=== PATIENT | male | born 1955 | race Caucasian/White ===

== ENCOUNTER → 2016-05-08 | Outpatient (CLI) | payer BC ==
[2013-07-09 10:02] VITALS: BP 145/83
[~2016-05-08] MED LIST: ASPI325T4 PO; CLOP75TA PO; HYDR25TA9 PO; SIMV40TA3 PO; [UNRECOGNIZED DRUG - CODE] PO
--- NOTE | 2016-05-08 18:22 | CARD ---
APPROVED REPORT EXAM: Two-dimensional and M-mode echocardiogram with Doppler and color Doppler. Other Information Quality : GoodHR: 58bpm Rhythm : Bradycardia INDICATION Pre-Op Cardiac Disease: CAD 2D DIMENSIONS RVDd3.7 (2.9-3.5cm)Left Atrium(2D)3.8 (1.6-4.0cm) IVSd1.0 (0.7-1.1cm)Aortic Root(2D)3.0 (2.0-3.7cm) LVDd4.6 (3.9-5.9cm)LVOT Diameter2.3 (1.8-2.4cm) PWd0.9 (0.7-1.1cm)LVDs3.0 (2.5-4.0cm) FS (%) 33.9 %SV60.7 ml LVEF(%)60.0 (>50%) Aortic Valve AoV Peak Connor.130.8cm/sAoV VTI27.6cm AO Peak GR.6.8mmHgLVOT Peak Connor.102.5cm/s LVOT VTI 22.65cmAO Mean GR.3mmHg TOMMY (VMAX)3.29xs9HMC (VTI)3.26cm2 Mitral Valve MV E Jiwozyeo53.1cm/sMV DECEL [id number] MV A Clbraekh93.5cm/sMV E Mean Gr.2mmHg MV DXT89caG/A Ratio2.1 MV A [id number] (PHT)3.69cm2 TDI E/Lateral E'7.4E/Medial E'9.7 Pulmonary Valve PV Peak Amoiowev06.7cm/sPV Peak Grad.3mmHg RVOT VTI14.9cm Tricuspid Valve TR P. Iqlhoimh332ux/sRAP [id number] TR Peak Gr.49naDkZZGB07rzZt Pulmonary Vein S1 Ocsuqgzc85.4cm/sD2 Fiwfntkq32.6cm/s PVa [id number] LEFT VENTRICLE The left ventricle is normal size. There is normal left ventricular wall thickness. Left ventricle sy stolic function is normal. The Ejection Fraction is 60%. There is normal LV segmental wall motion. Th e left ventricular diastolic function and filling is normal for age. There is no ventricular septal d efect visualized. RIGHT VENTRICLE The right ventricle is mildly dilated. There is normal right ventricular wall thickness. The right ve ntricular systolic function is normal. ATRIA The left atrium size is normal. The right atrium is mildly dilated. The interatrial septum is intact with no evidence for an atrial septal defect or patent foramen ovale as noted on 2-D or Doppler imagi ng. AORTIC VALVE The aortic valve is mildly thickened but opens well. The aortic valve is trileaflet. Doppler and [place] r Flow revealed no significant aortic regurgitation. There is no significant aortic valvular stenosis . MITRAL VALVE The mitral valve leaflets are thickened. There is no evidence of mitral valve prolapse. There is no m itral valve stenosis. Doppler and Color Flow revealed mild mitral regurgitation. TRICUSPID VALVE Doppler and Color Flow revealed mild tricuspid regurgitation. There is mild pulmonary hypertension. T he PA pressure was estimated at 43 mmHg. PULMONIC VALVE Doppler and Color Flow revealed mild pulmonic valvular regurgitation. GREAT VESSELS The aortic root is normal in size. The ascending aorta is normal in size. The pulmonary artery is nor mal. Normal pulmonary venous flow (Doppler). The IVC is normal in size and collapses >50% with inspir ation. PERICARDIAL EFFUSION There is no evidence of significant pericardial effusion. Critical Notification Critical Value: No <Conclusion> Left ventricle systolic function is normal. The Ejection Fraction is 60%. The right ventricle is mildly dilated. The left atrium size is normal. The right atrium is mildly dilated. The aortic valve is mildly thickened but opens well. The aortic valve is trileaflet. Doppler and Color Flow revealed mild mitral regurgitation. Doppler and Color Flow revealed mild tricuspid regurgitation. There is mild pulmonary hypertension. The PA pressure was estimated at 43 mmHg. Doppler and Color Flow revealed mild pulmonic valvular regurgitation. There is no evidence of significant pericardial effusion.
== END | disposition home or self-care (01) ==
LOC: ECHO 09:34
PROVIDERS: ATTEND Internal Medicine Cardiovascular Disease
DX: Z01.818 Encounter for other preprocedural examination (principal); I25.10 Atherosclerotic heart disease of native coronary artery without angina pectoris; I34.0 Nonrheumatic mitral (valve) insufficiency; I27.2 Other secondary pulmonary hypertension; I72.9 Aneurysm of unspecified site; I07.1 Rheumatic tricuspid insufficiency
CPT/HCPCS: 93306

== ENCOUNTER 2017-02-04 06:18 | Inpatient (IN) | payer BC ==
[~2017-02-04] VITALS: Ht 172.7 cm; Wt 95.0 kg
[~2017-02-04 06:18] MED LIST changes: -ASPI325T4 PO; +ASPI325T8 PO
[2017-02-04] MEDS ORDERED: NITROGLYCERIN SUBLINGUAL 0.4 MG BOTTLE OF 25. SL PRN (06:30)
[2017-02-04] MEDS ORDERED: fentaNYL PF VIAL 100 MCG/2 ML VIAL IV PRN ×2 (06:30→07:30)
[2017-02-04 06:43] LABS: BASO # 0.1 x10^3/uL (0.0-0.2); BASO % 1 % (0-3); EOS % 4 % (0-3); HEMATOCRIT 48.5 % (39.0-53.0); HEMOGLOBIN 16.6 g/dL (13.0-17.5); LYMPH # 2.2 x10^3/uL (1.0-4.8); LYMPH % 22 % (24-48); MEAN CORPUSCULAR HEMOGLOBIN 32 pg (25-35); MEAN CORPUSCULAR HGB CONC 34 g/dL (31-37); MEAN CORPUSCULAR VOLUME 94 fL (79-100); MONO % 11 % (0-9); NEUT % 62 % (31-73); PLATELET COUNT 215 x10^3/uL (140-400); RED BLOOD COUNT 5.13 x10^6/uL (4.30-5.70); RED CELL DISTRIBUTION WIDTH 13.2 % (11.5-14.5)
[2017-02-04 06:55] LABS: CALCIUM 8.8 mg/dL (8.5-10.1); CREATININE 1.1 mg/dL (0.7-1.3); GFR 67.8; POTASSIUM 3.8 mmol/L (3.5-5.1)
[2017-02-04 07:00] VITALS: BP_SYST 161; BP_SYST 169; BP_DIAS 82; BP_DIAS 88
[2017-02-04] MEDS ORDERED: ASPIRIN CHEWABLE 81 MG TABLET. PO ONE (07:00)
[2017-02-04] MEDS ORDERED: ONDANSETRON PF 4 MG/2 ML VIAL. IV ONE (07:00)
[2017-02-04] MEDS ORDERED: IV NORMAL SALINE 1000ML BAG 1,000 ML IV SCH ×2 (07:00→19:00)
[2017-02-04 07:01] LABS: ALBUMIN 3.7 g/dL (3.4-5.0); ALBUMIN/GLOBULIN RATIO 0.9 (1.0-1.7); MAGNESIUM 2.2 mg/dL (1.8-2.4); TOTAL BILIRUBIN 0.4 mg/dL (0.2-1.0); TOTAL PROTEIN 7.6 g/dL (6.4-8.2)
--- NOTE | 2017-02-04 07:08 | RAD ---
Portable chest, 02/04/2017: History: Chest pain Comparison is made to a study from 08/07/2011. The heart size and pulmonary vascularity are normal. The lungs are clear. There is no evidence of pleural fluid. IMPRESSION: No acute cardiopulmonary abnormality is detected.
[2017-02-04 07:13] LABS: CKMB MASS 0.9 ng/mL (0.0-3.6)
--- NOTE | 2017-02-04 07:15 | PHYS DOC ---
Past Medical History Past Medical History: CAD, Hypertension Past Surgical History: Angioplasty Alcohol Use: Occasionally Drug Use: None Adult General Chief Complaint Chief Complaint: CHEST PAIN HPI HPI Patient is a 62 year old male who presents with complaint of chest pain. Patient states that he awoke with chest pain at approximately 0345 this morning. Patient described the pain as "a severe sore throat." Patient states that the pain radiated into both sides of his neck as well as in both upper extremities. Patient states that this lasted a little over an hour and then resolved on its own. Patient denies any pain currently. Patient did not take any medications for his symptoms. The patient has history of coronary artery disease and has had coronary stents placed in the past. Patient follows with Dr. Hunter of cardiology. Patient states that he has had associated nausea and shortness of breath with his symptoms. Patient denies diaphoresis. Patient currently on aspirin and Plavix. Patient denies any known exacerbating or alleviating factors. Review of Systems Review of Systems Constitutional: Denies fever or chills [] Eyes: Denies change in visual acuity, redness, or eye pain [] HENT: Denies nasal congestion or sore throat [] Respiratory: Shortness of breath, denies cough[] Cardiovascular: Chest pain[] GI: Nausea, denies abdominal pain, vomiting, or diarrhea[] : Denies dysuria or hematuria [] Musculoskeletal: Denies back pain or joint pain [] Integument: Denies rash or skin lesions [] Neurologic: Denies headache, focal weakness or sensory changes [] All other systems were reviewed and found to be within normal limits, except as documented in this note. Current Medications Current Medications Current Medications Medications (Trade) Dose Ordered Sig/Rc Start Time Stop Time Status Last Admin Dose Admin Aspirin (Children'S Aspirin) 324 mg 1X ONCE 02/04/17 07:00 02/04/17 07:01 DC 02/04/17 06:56 324 MG Fentanyl Citrate (Fentanyl 2ml Vial) 50 mcg PRN Q15MIN PRN 02/04/17 06:30 02/05/17 06:29 Nitroglycerin (Nitrostat) 0.4 mg PRN Q5MIN PRN 02/04/17 06:30 02/05/17 06:29 Ondansetron HCl (Zofran) 4 mg 1X ONCE 02/04/17 07:00 02/04/17 07:01 DC Sodium Chloride 1,000 ml @ 125 mls/hr Q8H 02/04/17 07:00 02/04/17 14:59 02/04/17 06:57 125 MLS/HR Allergies Allergies Allergies Coded Allergies Type Severity Reaction Last Updated Verified No Known Drug Allergies 07/09/13 No Physical Exam Physical Exam Constitutional: Well developed, well nourished, no acute distress, non-toxic appearance. [] HENT: Normocephalic, atraumatic, bilateral external ears normal, oropharynx moist, no oral exudates, nose normal. [] Eyes: PERRLA, EOMI, conjunctiva normal, no discharge. [] Neck: Normal range of motion, no tenderness, supple, no stridor. [] Cardiovascular:Heart rate regular rhythm, no murmur [] Lungs & Thorax: Bilateral breath sounds clear to auscultation [] Abdomen: Bowel sounds normal, soft, no tenderness, no masses, no pulsatile masses. [] Skin: Warm, dry, no erythema, no rash. [] Back: No tenderness, no CVA tenderness. [] Extremities: No tenderness, no cyanosis, no clubbing, ROM intact, no edema. [] Neurologic: Alert and oriented X 3, normal motor function, normal sensory function, no focal deficits noted. [] Current Patient Data Vital Signs Vital Signs Date Time Temp Pulse Resp B/P (MAP) Pulse Ox O2 Delivery O2 Flow Rate FiO2 02/04/17 06:26 98.3 64 18 162/81 (108) 98 Room Air 98.3 Lab Values Laboratory Tests Test 02/04/17 06:30 White Blood Count 10.0 x10^3/uL (4.0-11.0) Red Blood Count 5.13 x10^6/uL (4.30-5.70) Hemoglobin 16.6 g/dL (13.0-17.5) Hematocrit 48.5 % (39.0-53.0) Mean Corpuscular Volume 94 fL (79-100) Mean Corpuscular Hemoglobin 32 pg (25-35) Mean Corpuscular Hemoglobin Concent 34 g/dL (31-37) Red Cell Distribution Width 13.2 % (11.5-14.5) Platelet Count 215 x10^3/uL (140-400) Neutrophils (%) (Auto) 62 % (31-73) Lymphocytes (%) (Auto) 22 % (24-48) L Monocytes (%) (Auto) 11 % (0-9) H Eosinophils (%) (Auto) 4 % (0-3) H Basophils (%) (Auto) 1 % (0-3) Neutrophils # (Auto) 6.2 x10^3uL (1.8-7.7) Lymphocytes # (Auto) 2.2 x10^3/uL (1.0-4.8) Monocytes # (Auto) 1.1 x10^3/uL (0.0-1.1) Eosinophils # (Auto) 0.4 x10^3/uL (0.0-0.7) Basophils # (Auto) 0.1 x10^3/uL (0.0-0.2) Sodium Level 137 mmol/L (136-145) Potassium Level 3.8 mmol/L (3.5-5.1) Chloride Level 101 mmol/L (98-107) Carbon Dioxide Level 25 mmol/L (21-32) Anion Gap 11 (6-14) Blood Urea Nitrogen 12 mg/dL (8-26) Creatinine 1.1 mg/dL (0.7-1.3) Estimated GFR (Cockcroft-Gault) 67.8 BUN/Creatinine Ratio 11 (6-20) Glucose Level 165 mg/dL (70-99) H Calcium Level 8.8 mg/dL (8.5-10.1) Magnesium Level 2.2 mg/dL (1.8-2.4) Total Bilirubin 0.4 mg/dL (0.2-1.0) Aspartate Amino Transferase (AST) 26 U/L (15-37) Alanine Aminotransferase (ALT) 34 U/L (16-63) Alkaline Phosphatase 84 U/L (46-116) Troponin I Quantitative 0.265 ng/mL (0.000-0.055) Total Protein 7.6 g/dL (6.4-8.2) Albumin 3.7 g/dL (3.4-5.0) Albumin/Globulin Ratio 0.9 (1.0-1.7) L Laboratory Tests 02/04/17 06:30 Laboratory Tests 02/04/17 06:30 EKG EKG Interpreted by me: Heart rate 64, sinus rhythm, normal intervals, normal axis, no acute ST/T-wave abnormalities present[] Radiology/Procedures Radiology/Procedures [facility] [address] [place] [address] IMAGING REPORT Signed PATIENT: PILO CRESPO ACCOUNT: [id number] : 1955 LOCATION: ER AGE: 62 SEX: M EXAM STATUS: PRE ER ORD. PHYSICIAN: BINDU ENCARNACION MD REASON: chest pain PROCEDURE: PORTABLE CHEST 1V Portable chest, 02/04/2017: History: Chest pain Comparison is made to a study from 08/07/2011. The heart size and pulmonary vascularity are normal. The lungs are clear. There is no evidence of pleural fluid. IMPRESSION: No acute cardiopulmonary abnormality is detected. DICTATED and SIGNED BY: KIERAN JOHN MD DATE: 02/04/17 0704 CC: BINDU ENCARNACION MD; DANIELLE BRAND ~ [] Course & Med Decision Making Course & Med Decision Making Pertinent Labs and Imaging studies reviewed. (See chart for details) The patient was given aspirin in the emergency department. The patient was not given nitroglycerin, fentanyl, and Zofran as he states he was not having pain and refused these medications. Patient's blood work showed an elevated troponin level of 0.265. Patient started on IV heparin per cardiovascular protocol. Patient will be admitted to the hospital for further evaluation and treatment of acute coronary syndrome. I spoke with Dr. Brown who accepted care of patient in hospital. I also spoke with Dr. Hunter of cardiology who agreed with initial treatment and will follow with patient in hospital. Dragon Disclaimer Dragon Disclaimer This electronic medical record was generated, in whole or in part, using a voice recognition dictation system. Departure Departure Impression: Primary Impression: Acute coronary syndrome Disposition: ADMITTED INPATIENT Admitting Physician: Natalia Brown Condition: GUARDED Referrals: DANIELLE BRAND (PCP) BINDU ENCARNACION MD Feb 04, 2017 07:14
[2017-02-04] MEDS ORDERED: ONDANSETRON PF 4 MG/2 ML VIAL. IV PRN ×2 (07:30→09:30)
[2017-02-04] MEDS ORDERED: HEPARIN 25,000UTS/500ML PREMIX 500 ML IV PRN (07:30)
[2017-02-04] MEDS ORDERED: HEPARIN for IV BOLUS 10,000 UNIT/10 ML VIAL. IV ONE (07:30)
--- NOTE | 2017-02-04 08:16 | EKG ---
[facility] [address] [place] [address] Test Date: 2017-02-04 Test Time: 06:26:30 Pat Name: PILO CRESPO Department: Room: 210 1 Gender: M Wolf Hunter: : 1955 Requested By: BINDU ENCARNACION Order Number: [id number] Reading MD: Ray Vang MD Measurements Intervals [place] Rate: 64 P: 27 NH: 160 QRS: 17 QRSD: 96 T: 26 QT: 396 QTc: 413 Interpretive Statements SINUS RHYTHM Electronically Signed On 02-11-2017 13:59:01 DOCK OPERATOR by Ray Vang MD
[2017-02-04] MEDS ORDERED: ACETAMINOPHEN 500 MG TABLET PO PRN (09:30)
[2017-02-04] MEDS ORDERED: LOSA50TA6 PO (09:58)
[2017-02-04] MEDS ORDERED: METO-239 PO (09:58)
[2017-02-04] MEDS ORDERED: ASPI-630 PO (09:58)
[2017-02-04] MEDS: IV NORMAL SALINE 1000ML BAG 1,000 ML IV SCH ×2 (10:27→17:59)
[2017-02-04 11:00] VITALS: BP 136/67
[2017-02-04] MEDS: LOSARTAN POTASSIUM 50 MG TABLET. PO SCH (12:42)
[2017-02-04] MEDS: METOPROLOL SUCC 24HR ER 25 MG TAB.ER.24H. PO SCH (12:42)
--- NOTE | 2017-02-04 12:59 | PDOC1 ---
History and Physical Date of Admission Date of Admission DATE: 02/04/17 TIME: 12:53 Identification/Chief Complaint Chief Complaint Chest pain woke him up at 3:45 AM Problems: Source Source: Caregiver, Chart review, Patient History of Present Illness History of Present Illness 62-year-old male known patient of Dr. Hunter, indwelling stents claims compliance aspirin and Plavix for many years. Some easy bruisability. Comes in because of chest pain that woke him up at 3:45 AM radiated to both his neck, some shortness of breath and reported diaphoresis, happened at rest, no identifiable precipitating or alleviating factor. He is comfortable now comfortable watching TV. Vital signs stable. EKG and cardiac enzymes reviewed troponin of 0.2. Part patient started on heparin drip. He should plan for a stress test by cardiology tomorrow morning. Past Medical History Cardiovascular: CAD, HTN, Hyperlipidemia Past Surgical History Past Surgical History: Other (PCI) Family History Family History: Hypertension Social History Smoke: No ALCOHOL: none Drugs: None Current Problem List Problem List Problems Medical Problems: (1) Acute coronary syndrome Status: Acute Problems: Current Medications Current Medications Current Medications Aspirin (Children'S Aspirin) 324 mg 1X ONCE PO Last administered on 06:56; Start 02/04/17 at 07:00; Stop 02/04/17 at 07:01; Status DC Nitroglycerin (Nitrostat) 0.4 mg PRN Q5MIN PRN SL CP RATING > 1/10; Start 02/09 at 06:30; Stop 02/05/17 at 06:29 Fentanyl Citrate (Fentanyl 2ml Vial) 50 mcg PRN Q15MIN PRN IV PAIN GREATER THAN 3/10; Start 02/04/17 at 06:30; Stop 02/05/17 at 06:29 Sodium Chloride 1,000 ml @ 125 mls/hr Q8H IV Last administered on 02/04/17 06:57; Start 02/04/17 at 07:00; Stop 02/04/17 at 14:59 Ondansetron HCl (Zofran) 4 mg 1X ONCE IV ; Start 02/04/17 at 07:00; Stop 02/09 at 07:01; Status DC Ondansetron HCl (Zofran) 4 mg PRN Q8HRS PRN IV NAUSEA/VOMITING; Start at 07:30; Stop 02/04/17 at 09:24; Status DC Fentanyl Citrate (Fentanyl 2ml Vial) 50 mcg PRN Q2HR PRN IV PAIN; Start at 07:30; Stop 02/05/17 at 07:29 Sodium Chloride 1,000 ml @ 125 mls/hr Q8H IV Last administered on 02/04/17 10:27; Start 02/04/17 at 07:20; Stop 02/05/17 at 07:19 Heparin Sodium (Porcine) (Heparin Sodium) 4,000 unit 1X ONCE IV Last administered on 02/04/17 08:46; Start 02/04/17 at 07:30; Stop 02/04/17 at 07 :31; Status DC Heparin Sodium/ Dextrose 500 ml @ 0 mls/hr CONT PRN IV SEE I/O RECORD Last administered on 02/04/17 08:45; Start 02/04/17 at 07:30 Heparin Sodium (Porcine) (Heparin Sodium) 2,400 unit PRN Q6HRS PRN IV FOR UFH LEVEL LESS THAN 0.2; Start 02/04/17 at 07:30 Ondansetron HCl (Zofran) 4 mg PRN Q6HRS PRN IV NAUSEA/VOMITING; Start at 09:30; Stop 02/05/17 at 09:29 Acetaminophen (Tylenol) 500 mg PRN Q6HRS PRN PO MILD PAIN / TEMP; Start at 09:30 Aspirin (Adrianne Aspirin) 325 mg DAILY PO ; Start 02/05/17 at 09:00 Clopidogrel Bisulfate (Plavix) 75 mg DAILY PO ; Start 02/05/17 at 09:00 Hydrochlorothiazide (Hydrodiuril) 25 mg DAILY PO ; Start 02/05/17 at 09:00 Simvastatin (Zocor) 40 mg HS PO ; Start 02/04/17 at 21:00 Non-Formulary Medication 250 mg DAILY PO ; Start 02/05/17 at 09:00; Stop 02/05 at 09:00; Status DC Aspirin (Children'S Aspirin) 81 mg DAILY PO ; Start 02/05/17 at 09:00 Losartan Potassium (Cozaar) 50 mg DAILY PO ; Start 02/04/17 at 13:00 Metoprolol Succinate (Toprol Xl) 50 mg DAILY PO ; Start 02/04/17 at 13:00 Active Scripts Active Reported Aspirin 81 Mg Tab.chew 1 Tab PO DAILY Losartan Potassium 50 Mg Tablet 50 Mg PO DAILY Metoprolol Succinate ( Xl ) (Metoprolol Succinate) 25 Mg Tab.er.24h 50 Mg PO DAILY Aspirin 325 Mg Tablet 325 Mg PO DAILY Clopidogrel (Clopidogrel Bisulfate) 75 Mg Tablet 75 Mg PO DAILY Hydrochlorothiazide Tablet (Hydrochlorothiazide) 25 Mg Tablet 25 Mg PO DAILY Simvastatin 40 Mg Tablet 40 Mg PO HS Allergies Allergies: Coded Allergies: No Known Drug Allergies (Unverified , 07/09/13) ROS Review of System 14 Point systems reviewed otherwise negative, as per history of present illness. Physical Exam General: Alert, Oriented X3, Cooperative, No acute distress HEENT: Atraumatic, PERRLA, EOMI Lungs: Clear to auscultation, Normal air movement Heart: S1S2, RRR, no thrills, no rubs, no gallops, no murmurs, murmurs Cardiovascular: S1, S2 Abdomen: Normal bowel sounds, Soft, No tenderness, No hepatosplenomegaly, No masses Male Genitals Exam: normal genitalia, normal prostate Rectal Exam: not examined PELVIC: Nml ext genitalia Extremities: No clubbing, No cyanosis, No edema, Normal pulses, No tenderness/ swelling Skin: No rashes, No breakdown, No significant lesion Neuro: Normal gait, Normal speech, Strength at 5/5 X4 ext, Normal tone, Sensation intact, Cranial nerves 3-12 NL, Reflexes 2+ Psych/Mental Status: Mental status NL, Mood NL Vitals Vitals Vital Signs Date Time Temp Pulse Resp B/P (MAP) Pulse Ox O2 Delivery O2 Flow Rate FiO2 02/04/17 11:00 98.0 56 20 136/67 (90) Room Air 96.0 98.0 02/04/17 07:24 97 Labs Labs Laboratory Tests Test 02/04/17 06:30 02/04/17 10:45 White Blood Count 10.0 x10^3/uL (4.0-11.0) Red Blood Count 5.13 x10^6/uL (4.30-5.70) Hemoglobin 16.6 g/dL (13.0-17.5) Hematocrit 48.5 % (39.0-53.0) Mean Corpuscular Volume 94 fL (79-100) Mean Corpuscular Hemoglobin 32 pg (25-35) Mean Corpuscular Hemoglobin Concent 34 g/dL (31-37) Red Cell Distribution Width 13.2 % (11.5-14.5) Platelet Count 215 x10^3/uL (140-400) Neutrophils (%) (Auto) 62 % (31-73) Lymphocytes (%) (Auto) 22 % (24-48) Monocytes (%) (Auto) 11 % (0-9) Eosinophils (%) (Auto) 4 % (0-3) Basophils (%) (Auto) 1 % (0-3) Neutrophils # (Auto) 6.2 x10^3uL (1.8-7.7) Lymphocytes # (Auto) 2.2 x10^3/uL (1.0-4.8) Monocytes # (Auto) 1.1 x10^3/uL (0.0-1.1) Eosinophils # (Auto) 0.4 x10^3/uL (0.0-0.7) Basophils # (Auto) 0.1 x10^3/uL (0.0-0.2) Sodium Level 137 mmol/L (136-145) Potassium Level 3.8 mmol/L (3.5-5.1) Chloride Level 101 mmol/L (98-107) Carbon Dioxide Level 25 mmol/L (21-32) Anion Gap 11 (6-14) Blood Urea Nitrogen 12 mg/dL (8-26) Creatinine 1.1 mg/dL (0.7-1.3) Estimated GFR (Cockcroft-Gault) 67.8 BUN/Creatinine Ratio 11 (6-20) Glucose Level 165 mg/dL (70-99) Calcium Level 8.8 mg/dL (8.5-10.1) Magnesium Level 2.2 mg/dL (1.8-2.4) Total Bilirubin 0.4 mg/dL (0.2-1.0) Aspartate Amino Transf (AST/SGOT) 26 U/L (15-37) Alanine Aminotransferase (ALT/SGPT) 34 U/L (16-63) Alkaline Phosphatase 84 U/L (46-116) Creatine Kinase 164 U/L (39-308) Creatine Kinase MB (Mass) 0.9 ng/mL (0.0-3.6) Creatine Kinase MB Relative Index 0.5 % (0-4) Troponin I Quantitative 0.265 ng/mL (0.000-0.055) 0.375 ng/mL (0.000-0.055) VC-Wrs-M-Type Natriuretic Peptide 208 pg/mL (0-124) Total Protein 7.6 g/dL (6.4-8.2) Albumin 3.7 g/dL (3.4-5.0) Albumin/Globulin Ratio 0.9 (1.0-1.7) Laboratory Tests Test 02/04/17 06:30 02/04/17 10:45 White Blood Count 10.0 x10^3/uL (4.0-11.0) Red Blood Count 5.13 x10^6/uL (4.30-5.70) Hemoglobin 16.6 g/dL (13.0-17.5) Hematocrit 48.5 % (39.0-53.0) Mean Corpuscular Volume 94 fL (79-100) Mean Corpuscular Hemoglobin 32 pg (25-35) Mean Corpuscular Hemoglobin Concent 34 g/dL (31-37) Red Cell Distribution Width 13.2 % (11.5-14.5) Platelet Count 215 x10^3/uL (140-400) Neutrophils (%) (Auto) 62 % (31-73) Lymphocytes (%) (Auto) 22 % (24-48) Monocytes (%) (Auto) 11 % (0-9) Eosinophils (%) (Auto) 4 % (0-3) Basophils (%) (Auto) 1 % (0-3) Neutrophils # (Auto) 6.2 x10^3uL (1.8-7.7) Lymphocytes # (Auto) 2.2 x10^3/uL (1.0-4.8) Monocytes # (Auto) 1.1 x10^3/uL (0.0-1.1) Eosinophils # (Auto) 0.4 x10^3/uL (0.0-0.7) Basophils # (Auto) 0.1 x10^3/uL (0.0-0.2) Sodium Level 137 mmol/L (136-145) Potassium Level 3.8 mmol/L (3.5-5.1) Chloride Level 101 mmol/L (98-107) Carbon Dioxide Level 25 mmol/L (21-32) Anion Gap 11 (6-14) Blood Urea Nitrogen 12 mg/dL (8-26) Creatinine 1.1 mg/dL (0.7-1.3) Estimated GFR (Cockcroft-Gault) 67.8 BUN/Creatinine Ratio 11 (6-20) Glucose Level 165 mg/dL (70-99) Calcium Level 8.8 mg/dL (8.5-10.1) Magnesium Level 2.2 mg/dL (1.8-2.4) Total Bilirubin 0.4 mg/dL (0.2-1.0) Aspartate Amino Transf (AST/SGOT) 26 U/L (15-37) Alanine Aminotransferase (ALT/SGPT) 34 U/L (16-63) Alkaline Phosphatase 84 U/L (46-116) Creatine Kinase 164 U/L (39-308) Creatine Kinase MB (Mass) 0.9 ng/mL (0.0-3.6) Creatine Kinase MB Relative Index 0.5 % (0-4) Troponin I Quantitative 0.265 ng/mL (0.000-0.055) 0.375 ng/mL (0.000-0.055) RS-Wer-M-Type Natriuretic Peptide 208 pg/mL (0-124) Total Protein 7.6 g/dL (6.4-8.2) Albumin 3.7 g/dL (3.4-5.0) Albumin/Globulin Ratio 0.9 (1.0-1.7) VTE Prophylaxis Ordered VTE Prophylaxis Devices: Yes VTE Pharmacological Prophylaxi: Yes Assessment/Plan Assessment/Plan Chest pain Hypertension Dyslipidemia Obesity BMI 32 CAD his indwelling stents Plan of care: Consult cardiology, cycle cardiac enzymes, nothing by mouth postmidnight, MPI tomorrow, resume home meds, further conditions pending above evaluation. ESTER FONTENOT MD Feb 04, 2017 12:59
[2017-02-04 15:00] VITALS: BP 134/60
[2017-02-04] MEDS: HEPARIN for IV BOLUS 10,000 UNIT/10 ML VIAL. IV PRN ×2 (15:35→22:13)
--- NOTE | 2017-02-04 18:15 | PDOC2 ---
CONSULT Date of Consult Date of Consult DATE: 02/04/17 TIME: 18:10 Reason for Consult Reason for Consult: Chest pain Referring Physician Referring Physician: Dr Brown Identification/Chief Complaint Chief Complaint Chest pain Problems: History of Present Illness Reason for Visit: This patient is a 62-year-old gentleman that has a known history of coronary artery disease and previous stents. He had been doing rather well and is very compliant with his medications. He then started chopping some wood and had one episode of neck tightness that radiated into the chest and into the shoulders disappoint away after resting. He felt well afterwards but then he had another episode where he was resting and then they same chest discomfort for woke him up and he came to the emergency room. After arrival in the emergency room he was found to have no significant changes in his EKG but he had a slight elevation of the troponin. The patient was admitted and heparinized. At the time that I saw the patient he was resting comfortably and denies having any chest discomfort. Past Medical History Cardiovascular: CAD, HTN, Hyperlipidemia Past Surgical History Past Surgical History: Other (PCI) Family History Family History: Hypertension Social History No ALCOHOL: none Drugs: None Current Problem List Problem List Problems Medical Problems: (1) Acute coronary syndrome Status: Acute Current Medications Current Medications Current Medications Aspirin (Children'S Aspirin) 324 mg 1X ONCE PO Last administered on 06:56; Start 02/04/17 at 07:00; Stop 02/04/17 at 07:01; Status DC Nitroglycerin (Nitrostat) 0.4 mg PRN Q5MIN PRN SL CP RATING > 1/10; Start 02/09 at 06:30; Stop 02/05/17 at 06:29 Fentanyl Citrate (Fentanyl 2ml Vial) 50 mcg PRN Q15MIN PRN IV PAIN GREATER THAN 3/10; Start 02/04/17 at 06:30; Stop 02/05/17 at 06:29 Sodium Chloride 1,000 ml @ 125 mls/hr Q8H IV Last administered on 02/04/17 06:57; Start 02/04/17 at 07:00; Stop 02/04/17 at 12:54; Status DC Ondansetron HCl (Zofran) 4 mg 1X ONCE IV ; Start 02/04/17 at 07:00; Stop 02/09 at 07:01; Status DC Ondansetron HCl (Zofran) 4 mg PRN Q8HRS PRN IV NAUSEA/VOMITING; Start at 07:30; Stop 02/04/17 at 09:24; Status DC Fentanyl Citrate (Fentanyl 2ml Vial) 50 mcg PRN Q2HR PRN IV PAIN; Start at 07:30; Stop 02/05/17 at 07:29 Sodium Chloride 1,000 ml @ 125 mls/hr Q8H IV Last administered on 02/04/17 17:59; Start 02/04/17 at 07:20; Stop 02/05/17 at 07:19 Heparin Sodium (Porcine) (Heparin Sodium) 4,000 unit 1X ONCE IV Last administered on 02/04/17 08:46; Start 02/04/17 at 07:30; Stop 02/04/17 at 07 :31; Status DC Heparin Sodium/ Dextrose 500 ml @ 0 mls/hr CONT PRN IV SEE I/O RECORD Last administered on 02/04/17 08:45; Start 02/04/17 at 07:30 Heparin Sodium (Porcine) (Heparin Sodium) 2,400 unit PRN Q6HRS PRN IV FOR UFH LEVEL LESS THAN 0.2 Last administered on 02/04/17 15:35; Start 02/04/17 at 07 :30 Ondansetron HCl (Zofran) 4 mg PRN Q6HRS PRN IV NAUSEA/VOMITING; Start at 09:30; Stop 02/05/17 at 09:29 Acetaminophen (Tylenol) 500 mg PRN Q6HRS PRN PO MILD PAIN / TEMP; Start at 09:30 Aspirin (Adrianne Aspirin) 325 mg DAILY PO ; Start 02/05/17 at 09:00 Clopidogrel Bisulfate (Plavix) 75 mg DAILY PO ; Start 02/05/17 at 09:00 Hydrochlorothiazide (Hydrodiuril) 25 mg DAILY PO ; Start 02/05/17 at 09:00 Simvastatin (Zocor) 40 mg HS PO ; Start 02/04/17 at 21:00 Non-Formulary Medication 250 mg DAILY PO ; Start 02/05/17 at 09:00; Stop 02/05 at 09:00; Status DC Aspirin (Children'S Aspirin) 81 mg DAILY PO ; Start 02/05/17 at 09:00 Losartan Potassium (Cozaar) 50 mg DAILY PO ; Start 02/04/17 at 13:00 Metoprolol Succinate (Toprol Xl) 50 mg DAILY PO ; Start 02/04/17 at 13:00 Active Scripts Active Reported Aspirin 81 Mg Tab.chew 1 Tab PO DAILY Losartan Potassium 50 Mg Tablet 50 Mg PO DAILY Metoprolol Succinate ( Xl ) (Metoprolol Succinate) 25 Mg Tab.er.24h 50 Mg PO DAILY Aspirin 325 Mg Tablet 325 Mg PO DAILY Clopidogrel (Clopidogrel Bisulfate) 75 Mg Tablet 75 Mg PO DAILY Hydrochlorothiazide Tablet (Hydrochlorothiazide) 25 Mg Tablet 25 Mg PO DAILY Simvastatin 40 Mg Tablet 40 Mg PO HS Allergies Allergies: Coded Allergies: No Known Drug Allergies (Unverified , 07/09/13) Physical Exam General: Alert, Oriented X3, Cooperative HEENT: Atraumatic, PERRLA Lungs: Clear to auscultation Heart: Regular rate, Normal S1, Normal S2 Abdomen: Normal bowel sounds, Soft Extremities: No edema Psych/Mental Status: Mental status NL Vitals VITALS Vital Signs Date Time Temp Pulse Resp B/P (MAP) Pulse Ox O2 Delivery O2 Flow Rate FiO2 02/04/17 15:00 98.1 60 21 134/60 (84) 96 Room Air 96.0 98.1 Labs Labs Laboratory Tests Test 02/04/17 06:30 02/04/17 10:45 02/04/17 14:45 White Blood Count 10.0 x10^3/uL (4.0-11.0) Red Blood Count 5.13 x10^6/uL (4.30-5.70) Hemoglobin 16.6 g/dL (13.0-17.5) Hematocrit 48.5 % (39.0-53.0) Mean Corpuscular Volume 94 fL (79-100) Mean Corpuscular Hemoglobin 32 pg (25-35) Mean Corpuscular Hemoglobin Concent 34 g/dL (31-37) Red Cell Distribution Width 13.2 % (11.5-14.5) Platelet Count 215 x10^3/uL (140-400) Neutrophils (%) (Auto) 62 % (31-73) Lymphocytes (%) (Auto) 22 % (24-48) Monocytes (%) (Auto) 11 % (0-9) Eosinophils (%) (Auto) 4 % (0-3) Basophils (%) (Auto) 1 % (0-3) Neutrophils # (Auto) 6.2 x10^3uL (1.8-7.7) Lymphocytes # (Auto) 2.2 x10^3/uL (1.0-4.8) Monocytes # (Auto) 1.1 x10^3/uL (0.0-1.1) Eosinophils # (Auto) 0.4 x10^3/uL (0.0-0.7) Basophils # (Auto) 0.1 x10^3/uL (0.0-0.2) Sodium Level 137 mmol/L (136-145) Potassium Level 3.8 mmol/L (3.5-5.1) Chloride Level 101 mmol/L (98-107) Carbon Dioxide Level 25 mmol/L (21-32) Anion Gap 11 (6-14) Blood Urea Nitrogen 12 mg/dL (8-26) Creatinine 1.1 mg/dL (0.7-1.3) Estimated GFR (Cockcroft-Gault) 67.8 BUN/Creatinine Ratio 11 (6-20) Glucose Level 165 mg/dL (70-99) Calcium Level 8.8 mg/dL (8.5-10.1) Magnesium Level 2.2 mg/dL (1.8-2.4) Total Bilirubin 0.4 mg/dL (0.2-1.0) Aspartate Amino Transf (AST/SGOT) 26 U/L (15-37) Alanine Aminotransferase (ALT/SGPT) 34 U/L (16-63) Alkaline Phosphatase 84 U/L (46-116) Creatine Kinase 164 U/L (39-308) Creatine Kinase MB (Mass) 0.9 ng/mL (0.0-3.6) Creatine Kinase MB Relative Index 0.5 % (0-4) Troponin I Quantitative 0.265 ng/mL (0.000-0.055) 0.375 ng/mL (0.000-0.055) 0.332 ng/mL (0.000-0.055) ND-Uei-Q-Type Natriuretic Peptide 208 pg/mL (0-124) Total Protein 7.6 g/dL (6.4-8.2) Albumin 3.7 g/dL (3.4-5.0) Albumin/Globulin Ratio 0.9 (1.0-1.7) Heparin Anti-Xa Act, Unfractionated 0.11 IU/mL (0.30-0.70) Laboratory Tests Test 02/04/17 06:30 02/04/17 10:45 02/04/17 14:45 White Blood Count 10.0 x10^3/uL (4.0-11.0) Red Blood Count 5.13 x10^6/uL (4.30-5.70) Hemoglobin 16.6 g/dL (13.0-17.5) Hematocrit 48.5 % (39.0-53.0) Mean Corpuscular Volume 94 fL (79-100) Mean Corpuscular Hemoglobin 32 pg (25-35) Mean Corpuscular Hemoglobin Concent 34 g/dL (31-37) Red Cell Distribution Width 13.2 % (11.5-14.5) Platelet Count 215 x10^3/uL (140-400) Neutrophils (%) (Auto) 62 % (31-73) Lymphocytes (%) (Auto) 22 % (24-48) Monocytes (%) (Auto) 11 % (0-9) Eosinophils (%) (Auto) 4 % (0-3) Basophils (%) (Auto) 1 % (0-3) Neutrophils # (Auto) 6.2 x10^3uL (1.8-7.7) Lymphocytes # (Auto) 2.2 x10^3/uL (1.0-4.8) Monocytes # (Auto) 1.1 x10^3/uL (0.0-1.1) Eosinophils # (Auto) 0.4 x10^3/uL (0.0-0.7) Basophils # (Auto) 0.1 x10^3/uL (0.0-0.2) Sodium Level 137 mmol/L (136-145) Potassium Level 3.8 mmol/L (3.5-5.1) Chloride Level 101 mmol/L (98-107) Carbon Dioxide Level 25 mmol/L (21-32) Anion Gap 11 (6-14) Blood Urea Nitrogen 12 mg/dL (8-26) Creatinine 1.1 mg/dL (0.7-1.3) Estimated GFR (Cockcroft-Gault) 67.8 BUN/Creatinine Ratio 11 (6-20) Glucose Level 165 mg/dL (70-99) Calcium Level 8.8 mg/dL (8.5-10.1) Magnesium Level 2.2 mg/dL (1.8-2.4) Total Bilirubin 0.4 mg/dL (0.2-1.0) Aspartate Amino Transf (AST/SGOT) 26 U/L (15-37) Alanine Aminotransferase (ALT/SGPT) 34 U/L (16-63) Alkaline Phosphatase 84 U/L (46-116) Creatine Kinase 164 U/L (39-308) Creatine Kinase MB (Mass) 0.9 ng/mL (0.0-3.6) Creatine Kinase MB Relative Index 0.5 % (0-4) Troponin I Quantitative 0.265 ng/mL (0.000-0.055) 0.375 ng/mL (0.000-0.055) 0.332 ng/mL (0.000-0.055) IH-Pks-G-Type Natriuretic Peptide 208 pg/mL (0-124) Total Protein 7.6 g/dL (6.4-8.2) Albumin 3.7 g/dL (3.4-5.0) Albumin/Globulin Ratio 0.9 (1.0-1.7) Heparin Anti-Xa Act, Unfractionated 0.11 IU/mL (0.30-0.70) Assessment/Plan Assessment/Plan This patient with a known history of coronary artery disease and previous stents comes in with an episode of suspicious symptoms for significant angina and had a slight elevation of the troponin. We discussed the possibility of medical treatment as stress test or a heart catheterization and it was decided to proceed with a heart catheterization. The patient is aware of the risks and has had the procedure before. We will cath him in a.m. Thank you very much for asking me to participate in the care of this patient. CELE FONG MD Feb 04, 2017 18:15
[2017-02-04] MEDS ORDERED: IV 1/2 NORMAL SALINE 1,000 ML IV SCH (18:30)
[2017-02-04] MEDS ORDERED: ALPRAZolam 0.25 MG TABLET PO PRN (19:00)
[2017-02-04 20:35] VITALS: BP 136/67
[2017-02-04] MEDS: SIMVASTATIN 40 MG TABLET. PO SCH (20:37)
[2017-02-04 23:12] VITALS: BP 114/50
[2017-02-05] VITALS (14 sets, daily range): BP systolic 117–178; BP diastolic 55–99
[2017-02-05] MEDS: METOPROLOL SUCC 24HR ER 25 MG TAB.ER.24H. PO SCH (08:12)
[2017-02-05] MEDS: CLOPIDOGREL BISULFATE 75 MG TABLET PO SCH (08:12)
[2017-02-05] MEDS: LOSARTAN POTASSIUM 50 MG TABLET. PO SCH (08:12)
[2017-02-05] MEDS ORDERED: ANTI-COAG MONITOR BY PHARMACY. MC PRN (08:15)
[2017-02-05] MEDS ORDERED: ASPIRIN 325 MG TABLET PO SCH (09:00)
[2017-02-05] MEDS ORDERED: ASPIRIN CHEWABLE 81 MG TABLET. PO SCH (09:00)
[2017-02-05] MEDS ORDERED: [UNRECOGNIZED DRUG - OTHER] PO SCH (09:00)
--- NOTE | 2017-02-05 10:01 | PDOC ---
PROGRESS NOTES Chief Complaint Chief Complaint Chest pain Hypertension Dyslipidemia Obesity BMI 32 CAD his indwelling stents History of Present Illness History of Present Illness No overnight calls Patient remains chest pain-free, vital signs stable, family at bedside. Plan LHC by cardiology today has been nothing by mouth Vitals Vitals Vital Signs Date Time Temp Pulse Resp B/P (MAP) Pulse Ox O2 Delivery O2 Flow Rate FiO2 02/05/17 08:12 58 138/63 02/05/17 08:00 Room Air 02/05/17 07:00 97.4 19 98 97.4 02/04/17 15:00 96.0 Physical Exam General: Alert, Oriented X3, Cooperative Heart: Regular rate, Normal S1, Normal S2 Abdomen: Normal bowel sounds, Soft Extremities: No edema Skin: No rashes, No breakdown, No significant lesion Labs LABS Laboratory Tests Test 02/04/17 10:45 02/04/17 14:45 02/04/17 21:30 02/05/17 04:45 Troponin I Quantitative 0.375 ng/mL (0.000-0.055) 0.332 ng/mL (0.000-0.055) Heparin Anti-Xa Act, Unfractionated 0.11 IU/mL (0.30-0.70) 0.11 IU/mL (0.30-0.70) 0.36 IU/mL (0.30-0.70) Review of Systems Review of Systems A 14 point ROS was completed with the following noted as positive: Other systems reviewed and negative. \CONSTITUTIONAL: No fever or chills EYES: No recent changes SKIN: No rash or itching CARDIOVASCULAR: No chest pain, syncope, palpitations, or edema RESPIRATORY: No SOB or cough GASTROINTESTINAL: No nausea, vomiting or abdominal pain NEUROLOGICAL: No headaches or weakness ENDOCRINE: No cold or heat intolerance GENITOURINARY: No urgency or frequency of urination MUSCULOSKELETAL: No back pain or joint pain LYMPHATICS: No enlarged lymph nodes PSYCHIATRIC: No anxiety or depression Assessment and Plan Assessmemt and Plan Problems Medical Problems: (1) Acute coronary syndrome Status: Acute Problems: Comment Review of Relevant I have reviewed the following items saundra (where applicable) has been applied. Labs Laboratory Tests Test 02/04/17 06:30 02/04/17 10:45 02/04/17 14:45 02/04/17 21:30 White Blood Count 10.0 x10^3/uL (4.0-11.0) Red Blood Count 5.13 x10^6/uL (4.30-5.70) Hemoglobin 16.6 g/dL (13.0-17.5) Hematocrit 48.5 % (39.0-53.0) Mean Corpuscular Volume 94 fL (79-100) Mean Corpuscular Hemoglobin 32 pg (25-35) Mean Corpuscular Hemoglobin Concent 34 g/dL (31-37) Red Cell Distribution Width 13.2 % (11.5-14.5) Platelet Count 215 x10^3/uL (140-400) Neutrophils (%) (Auto) 62 % (31-73) Lymphocytes (%) (Auto) 22 % (24-48) Monocytes (%) (Auto) 11 % (0-9) Eosinophils (%) (Auto) 4 % (0-3) Basophils (%) (Auto) 1 % (0-3) Neutrophils # (Auto) 6.2 x10^3uL (1.8-7.7) Lymphocytes # (Auto) 2.2 x10^3/uL (1.0-4.8) Monocytes # (Auto) 1.1 x10^3/uL (0.0-1.1) Eosinophils # (Auto) 0.4 x10^3/uL (0.0-0.7) Basophils # (Auto) 0.1 x10^3/uL (0.0-0.2) Sodium Level 137 mmol/L (136-145) Potassium Level 3.8 mmol/L (3.5-5.1) Chloride Level 101 mmol/L (98-107) Carbon Dioxide Level 25 mmol/L (21-32) Anion Gap 11 (6-14) Blood Urea Nitrogen 12 mg/dL (8-26) Creatinine 1.1 mg/dL (0.7-1.3) Estimated GFR (Cockcroft-Gault) 67.8 BUN/Creatinine Ratio 11 (6-20) Glucose Level 165 mg/dL (70-99) Calcium Level 8.8 mg/dL (8.5-10.1) Magnesium Level 2.2 mg/dL (1.8-2.4) Total Bilirubin 0.4 mg/dL (0.2-1.0) Aspartate Amino Transf (AST/SGOT) 26 U/L (15-37) Alanine Aminotransferase (ALT/SGPT) 34 U/L (16-63) Alkaline Phosphatase 84 U/L (46-116) Creatine Kinase 164 U/L (39-308) Creatine Kinase MB (Mass) 0.9 ng/mL (0.0-3.6) Creatine Kinase MB Relative Index 0.5 % (0-4) Troponin I Quantitative 0.265 ng/mL (0.000-0.055) 0.375 ng/mL (0.000-0.055) 0.332 ng/mL (0.000-0.055) XD-Who-Z-Type Natriuretic Peptide 208 pg/mL (0-124) Total Protein 7.6 g/dL (6.4-8.2) Albumin 3.7 g/dL (3.4-5.0) Albumin/Globulin Ratio 0.9 (1.0-1.7) Heparin Anti-Xa Act, Unfractionated 0.11 IU/mL (0.30-0.70) 0.11 IU/mL (0.30-0.70) Test 02/05/17 04:45 Heparin Anti-Xa Act, Unfractionated 0.36 IU/mL (0.30-0.70) Laboratory Tests Test 02/04/17 10:45 02/04/17 14:45 02/04/17 21:30 02/05/17 04:45 Troponin I Quantitative 0.375 ng/mL (0.000-0.055) 0.332 ng/mL (0.000-0.055) Heparin Anti-Xa Act, Unfractionated 0.11 IU/mL (0.30-0.70) 0.11 IU/mL (0.30-0.70) 0.36 IU/mL (0.30-0.70) Medications Current Medications Aspirin (Children'S Aspirin) 324 mg 1X ONCE PO Last administered on t 06:56; Start 02/04/17 at 07:00; Stop 02/04/17 at 07:01; Status DC Nitroglycerin (Nitrostat) 0.4 mg PRN Q5MIN PRN SL CP RATING > 1/10; Start 02/09 at 06:30; Stop 02/05/17 at 06:29; Status DC Fentanyl Citrate (Fentanyl 2ml Vial) 50 mcg PRN Q15MIN PRN IV PAIN GREATER THAN 3/10; Start 02/04/17 at 06:30; Stop 02/05/17 at 06:29; Status DC Sodium Chloride 1,000 ml @ 125 mls/hr Q8H IV Last administered on 02/04/17 06:57; Start 02/04/17 at 07:00; Stop 02/04/17 at 12:54; Status DC Ondansetron HCl (Zofran) 4 mg 1X ONCE IV ; Start 02/04/17 at 07:00; Stop 02/09 at 07:01; Status DC Ondansetron HCl (Zofran) 4 mg PRN Q8HRS PRN IV NAUSEA/VOMITING; Start at 07:30; Stop 02/04/17 at 09:24; Status DC Fentanyl Citrate (Fentanyl 2ml Vial) 50 mcg PRN Q2HR PRN IV PAIN; Start at 07:30; Stop 02/05/17 at 07:29; Status DC Sodium Chloride 1,000 ml @ 125 mls/hr Q8H IV Last administered on 02/04/17 10:27; Start 02/04/17 at 07:20; Stop 02/04/17 at 18:34; Status DC Heparin Sodium (Porcine) (Heparin Sodium) 4,000 unit 1X ONCE IV Last administered on 02/04/17 08:46; Start 02/04/17 at 07:30; Stop 02/04/17 at 07 :31; Status DC Heparin Sodium/ Dextrose 500 ml @ 0 mls/hr CONT PRN IV SEE I/O RECORD Last administered on 02/04/17 08:45; Start 02/04/17 at 07:30 Heparin Sodium (Porcine) (Heparin Sodium) 2,400 unit PRN Q6HRS PRN IV FOR UFH LEVEL LESS THAN 0.2 Last administered on 02/04/17 22:13; Start 02/04/17 at 07 :30 Ondansetron HCl (Zofran) 4 mg PRN Q6HRS PRN IV NAUSEA/VOMITING; Start at 09:30; Stop 02/05/17 at 09:29; Status DC Acetaminophen (Tylenol) 500 mg PRN Q6HRS PRN PO MILD PAIN / TEMP; Start at 09:30 Aspirin (Adrianne Aspirin) 325 mg DAILY PO ; Start 02/05/17 at 09:00; Stop at 09:00; Status DC Clopidogrel Bisulfate (Plavix) 75 mg DAILY PO Last administered on 02/05/17 08:12; Start 02/05/17 at 09:00 Hydrochlorothiazide (Hydrodiuril) 25 mg DAILY PO ; Start 02/05/17 at 09:00 Simvastatin (Zocor) 40 mg HS PO Last administered on 02/04/17 20:37; Start 02/04/17 at 21:00 Non-Formulary Medication 250 mg DAILY PO ; Start 02/05/17 at 09:00; Stop 02/05 at 09:00; Status DC Aspirin (Children'S Aspirin) 81 mg DAILY PO Last administered on 02/05/17 08: 11; Start 02/05/17 at 09:00 Losartan Potassium (Cozaar) 50 mg DAILY PO Last administered on 02/05/17 08: 12; Start 02/04/17 at 13:00 Metoprolol Succinate (Toprol Xl) 50 mg DAILY PO Last administered on 08:12; Start 02/04/17 at 13:00 Sodium Chloride 1,000 ml @ 60 mls/hr [id number] IV ; Start 02/04/17 at 18:30; Stop 02/04/17 at 18:34; Status DC Sodium Chloride 1,000 ml @ 60 mls/hr [id number] IV Last administered on 19:00; Start 02/04/17 at 19:00 Alprazolam (Xanax) 0.25 mg PRN Q6HRS PRN PO ANXIETY / AGITATION; Start at 19:00 Info (Anti-Coagulation Monitoring By Pharmacy) 1 each PRN DAILY PRN MC SEE COMMENTS; Start 02/05/17 at 08:15 Active Scripts Active Reported Aspirin 81 Mg Tab.chew 1 Tab PO DAILY Losartan Potassium 50 Mg Tablet 50 Mg PO DAILY Metoprolol Succinate ( Xl ) (Metoprolol Succinate) 25 Mg Tab.er.24h 50 Mg PO DAILY Aspirin 325 Mg Tablet 325 Mg PO DAILY Clopidogrel (Clopidogrel Bisulfate) 75 Mg Tablet 75 Mg PO DAILY Hydrochlorothiazide Tablet (Hydrochlorothiazide) 25 Mg Tablet 25 Mg PO DAILY Simvastatin 40 Mg Tablet 40 Mg PO HS Vitals/I & O Vital Sign - Last 24 Hours 02/04/17 02/04/17 02/04/17 02/04/17 11:00 15:00 20:00 20:35 Temp 98.0 98.1 97.8 98.0 98.1 97.8 Pulse 56 60 53 Resp 20 21 20 B/P (MAP) 136/67 (90) 134/60 (84) 136/67 (90) Pulse Ox 96 97 O2 Delivery Room Air Room Air Room Air Room Air O2 Flow Rate 96.0 96.0 02/04/17 02/05/17 02/05/17 02/05/17 23:12 03:07 07:00 08:00 Temp 97.3 97.5 97.4 97.3 97.5 97.4 Pulse 57 63 59 Resp 18 18 19 B/P (MAP) 114/50 (71) 129/79 (96) 145/66 (92) Pulse Ox 95 96 98 O2 Delivery Room Air Room Air Room Air Room Air 02/05/17 02/05/17 08:12 08:12 Pulse 56 58 B/P (MAP) 138/63 138/63 Intake and Output 02/04/17 02/04/17 02/05/17 15:00 23:00 07:00 Intake Total 250 ml 1550 ml 2526 ml Output Total 1200 ml Balance 250 ml 350 ml 2526 ml ESTER FONTENOT MD Feb 05, 2017 10:01
[2017-02-05] MEDS ORDERED: LIDOCAINE 2% 20 ML VIAL. ONE (10:25)
[2017-02-05] MEDS ORDERED: IOHEXOL 300 MG/ML 100ML VIAL. ONE (10:25)
[2017-02-05] MEDS ORDERED: fentaNYL PF VIAL 100 MCG/2 ML VIAL ONE ×2 (10:58→11:24)
[2017-02-05] MEDS ORDERED: MIDAZOLAM HCL/PF 2 MG/2 ML VIAL. ONE ×2 (10:58→11:24)
--- NOTE | 2017-02-05 11:10 | PDOC ---
MODERATE SEDATION ASSESSMENT RISKS/ALTERNATIVES Risks/Alternatives Risks and alternatives of this type of sedation and procedure discussed with: RISK/ALTERNATIVES: Patient H & P ON CHART H & P H & P on chart and reviewed for co-morbid conditions and appropriate labs. H&P ON CHART: Yes STATUS PREG STATUS ASSESSED: Yes MEDS/ALLERGIES REVIEWED Meds/Allergies Reviewed Medications and Allergies including time and route of recently administered narcotics and sedatives. MEDS/ALLERGIES REVIEWED: Yes ASA RATING ASA RATING: I AIRWAY ASSESSMENT Airway Assessment Airway patency, oral function limitations, presence of caps, crowns, dentures, partials, and ability to extend neck assessed. AIRWAY ASSESSMENT: Yes MALLAMPATI SCORE MALLAMPATI SCORE: II PRE-SEDATION ASSESSMENT PRE-SEDATION ASSESSMENT: Yes CELE FONG MD Feb 05, 2017 11:10
[2017-02-05] MEDS ORDERED: HEPARIN for IV BOLUS 10,000 UNIT/10 ML VIAL. ONE (11:24)
[2017-02-05] MEDS ORDERED: TIROFIBAN 12.5MG -0.9% NS 250 ML IV ONE (11:25)
[2017-02-05] MEDS ORDERED: TIROFIBAN 12.5MG -0.9% NS 250 ML IV PRN (11:32)
[2017-02-05] MEDS ORDERED: HEPARIN 25,000UTS/500ML PREMIX 500 ML IV ONE (11:58)
[2017-02-05] MEDS ORDERED: IOHEXOL 300 MG/ML 100ML VIAL. IART ONE (12:00)
[2017-02-05] MEDS ORDERED: fentaNYL PF VIAL 100 MCG/2 ML VIAL IV ONE (12:00)
[2017-02-05] MEDS ORDERED: HEPARIN for IV BOLUS 10,000 UNIT/10 ML VIAL. IV ONE (12:00)
[2017-02-05] MEDS ORDERED: MIDAZOLAM HCL/PF 2 MG/2 ML VIAL. IV ONE (12:00)
[2017-02-05] MEDS: TIROFIBAN 12.5MG -0.9% NS 250 ML IV PRN (12:00)
[2017-02-05] MEDS ORDERED: LIDOCAINE 2% 20 ML VIAL. IJ ONE (12:00)
[2017-02-05] MEDS ORDERED: ASPIRIN ENTERIC COATED 325 MG TABLET.DR. PO ONE (12:30)
[2017-02-05] MEDS ORDERED: NITROGLYCERIN SUBLINGUAL 0.4 MG BOTTLE OF 25. SL PRN (12:30)
[2017-02-05] MEDS ORDERED: ACETAMINOPHEN 325 MG TABLET. PO PRN (12:30)
[2017-02-05] MEDS ORDERED: fentaNYL PF VIAL 100 MCG/2 ML VIAL IV PRN (12:30)
[2017-02-05] MEDS ORDERED: HYDROcodone/APAP 5/325MG 1 TAB TABLET PO PRN (12:30)
[2017-02-05] MEDS: hydroCHLOROthiazide 25 MG TABLET PO SCH (13:20)
[2017-02-05] MEDS: IV 1/2 NORMAL SALINE 1,000 ML IV SCH (13:20)
[2017-02-05] MEDS ORDERED: ENALAPRILAT 1.25 MG/ML VIAL. IV PRN (14:30)
--- NOTE | 2017-02-05 18:02 | CARD ---
APPROVED REPORT Procedure(s) performed: SEDATION TIME: 51 MINUTES HISTORY The patient is a 62 year-old male with a history of : previous [place], coronary artery disease, previous PCI (The PCI date was ), hypertension, dyslipidemia. INDICATION The indication(s) include : non-STEMI , chest pain, abnormal ECG. CASE TECHNIQUE The patient was brought electively into the cardiac catheterization lab. A timeout was performed conf irming the patient's name, date of , procedure, and site of procedure. All necessary parties wer e wearing the appropriate personal protective equipment and radiation monitoring devices. After expla ining the risks and benefits of the procedure, informed consent was obtained.(See nursing notes for m edications administered). The right groin was sterilely prepped and draped. The right femoral groin w as infiltrated with 2% Lidocaine subcutaneous anesthesia. During this case, Fluoroscopy and low osmol ar contrast were used for imaging. A sheath was inserted into the right femoral artery without diffic ulty. Coronary angiography was performed using coronary diagnostic catheters. The left coronary syste m was accessed and visualized with a Diagnostic catheter. The right coronary system was accessed and visualized with a Diagnostic catheter. The left ventricle was accessed and visualized with a Diagnost ic catheter. Left ventricular/Aortic Valve gradient assessed on pullback. Left ventriculogram was per formed in FARIA projection. After reviewing the pictures I decided to proceed with stenting of the Cx. Coronary Angiography The patient's coronary anatomy is right dominant. The left main coronary artery is a large size vessel free of disease. The left main bifurcates to the left anterior descending and circumflex. The left anterior descending artery is a medium size vessel with intimal irregularities. There is a 4 0% stenosis in the mid segment. The first diagonal branch is a small size vessel free of disease. The second diagonal branch is a small size vessel free of disease. The third diagonal branch is a small size vessel free of disease. The circumflex artery is a medium size vessel with stenosis. There is a 90% stenosis in the mid segme nt. and a tandem lesion of 99% The first obtuse marginal branch is a small size vessel free of diseas e. The second obtuse marginal branch is a small size vessel free of disease. The third obtuse margina l branch is a small size vessel free of disease. The right coronary artery is a medium size vessel free of disease. The right posterior descending art shannan is a small size vessel free of disease. The right posterolateral branch is a small size vessel fr ee of disease. Left Ventriculography The left ventricle is normal in size with normal contractility. The left ventricular ejection fractio n is estimated to be 60%. The left ventricular end diastolic pressure is 18 mmHg. There was no gradie nt across the aortic valve upon pullback. PCI Technique Lesion Anticoagulation was achieved with Heparin. Patient was preloaded with Plavix. Percutaneous coronary i ntervention was performed on the mid circumflex artery segment. The lesion stenosis prior to interven tion was 90% and 99% with ASHWINI flow. A JL 4 Guide Catheter was used to engage the LM ostium. STENT DEPLOYMENT A drug-eluting stent 3.0mm X 18mm was inserted and inflated up to 12atm for 20seconds. Repeat angiogr aphy revealed the following post-stent deployment results: no dissection and no significant residual disease was seen.. 2 high pressure inflations were done Conclusion This was a succesful stenting of both lesions of the Cx with one ROSS stent. Pt tolerated the procedure well. Will give a Heparin drip and an Agristat drip for 18 hrs. Recommendations Daily ASA with Plavix for at least one year
[2017-02-05] MEDS: SIMVASTATIN 40 MG TABLET. PO SCH (20:33)
[2017-02-06] MEDS: TIROFIBAN 12.5MG -0.9% NS 250 ML IV PRN (02:15)
[2017-02-06] MEDS: IV 1/2 NORMAL SALINE 1,000 ML IV SCH (02:15)
[2017-02-06 03:45] VITALS: BP 134/54
[2017-02-06 04:03] LABS: HEMATOCRIT 41.8 % (39.0-53.0); HEMOGLOBIN 14.1 g/dL (13.0-17.5); RED BLOOD COUNT 4.37 x10^6/uL (4.30-5.70); RED CELL DISTRIBUTION WIDTH 13.3 % (11.5-14.5); WHITE BLOOD COUNT 9.1 x10^3/uL (4.0-11.0)
[2017-02-06 04:37] LABS: CALCIUM 8.2 mg/dL (8.5-10.1); CREATININE 0.9 mg/dL (0.7-1.3); GFR 85.5; POTASSIUM 3.7 mmol/L (3.5-5.1)
[2017-02-06 04:39] LABS: CHOLESTEROL/HDL RATIO 3.8
[2017-02-06 07:00] VITALS: BP 122/70
--- NOTE | 2017-02-06 07:13 | EKG ---
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
[2017-02-06] MEDS ORDERED: CLOPIDOGREL BISULFATE 75 MG TABLET PO SCH (08:00)
[2017-02-06] MEDS ORDERED: ASPIRIN ENTERIC COATED 325 MG TABLET.DR. PO SCH (08:00)
[2017-02-06] MEDS: hydroCHLOROthiazide 25 MG TABLET PO SCH (09:27)
[2017-02-06] MEDS: CLOPIDOGREL BISULFATE 75 MG TABLET PO SCH (09:27)
[2017-02-06] MEDS: LOSARTAN POTASSIUM 50 MG TABLET. PO SCH (09:28)
[2017-02-06] MEDS: METOPROLOL SUCC 24HR ER 25 MG TAB.ER.24H. PO SCH (09:28)
[2017-02-06 11:00] VITALS: BP 126/72
--- NOTE | 2017-02-06 11:25 | PDOC ---
Provider Note Provider Note dc summ dictated. JOb # [id number] ESTER FONTENOT MD Feb 06, 2017 11:25
[2017-02-06 15:00] VITALS: BP 136/72
--- NOTE | 2017-02-06 15:30 | PDOC ---
PROGRESS NOTES Subjective Subjective Pt feels ready to go home. Pt is clear from cardiac standpoint. Objective Objective Vital Signs Date Time Temp Pulse Resp B/P (MAP) Pulse Ox O2 Delivery O2 Flow Rate FiO2 02/06/17 11:00 96.6 63 20 126/72 (90) 97 96.6 02/06/17 08:00 Room Air 02/05/17 12:00 2.0 Intake and Output 02/06/17 07:00 Intake Total 3055 ml Output Total 675 ml Balance 2380 ml Intake Oral 1300 ml IV Total 1755 ml Output Urine Total 675 ml # Voids 3 Physical Exam Physical Exam No significant changes in cardiac exam. Assessment Assessment Pt Stable from Cardiac Standpoint Problems Medical Problems: (1) Acute coronary syndrome Status: Acute Plan Plan of Care Continue Aspirin and Plavix Monitor BP at home 5 days of rest before resuming strenuous physical activity F/u as outpatient in February OK to discharge today from cardiac standpoint Comment Review of Relevant I have reviewed the following items saundra (where applicable) has been applied. Labs Laboratory Tests Test 02/04/17 21:30 02/05/17 04:45 02/05/17 11:42 02/06/17 03:50 Heparin Anti-Xa Act, Unfractionated 0.11 IU/mL (0.30-0.70) 0.36 IU/mL (0.30-0.70) Activated Clotting Time 249 sec (92-181) White Blood Count 9.1 x10^3/uL (4.0-11.0) Red Blood Count 4.37 x10^6/uL (4.30-5.70) Hemoglobin 14.1 g/dL (13.0-17.5) Hematocrit 41.8 % (39.0-53.0) Mean Corpuscular Volume 96 fL (79-100) Mean Corpuscular Hemoglobin 32 pg (25-35) Mean Corpuscular Hemoglobin Concent 34 g/dL (31-37) Red Cell Distribution Width 13.3 % (11.5-14.5) Platelet Count 178 x10^3/uL (140-400) Sodium Level 138 mmol/L (136-145) Potassium Level 3.7 mmol/L (3.5-5.1) Chloride Level 105 mmol/L (98-107) Carbon Dioxide Level 24 mmol/L (21-32) Anion Gap 9 (6-14) Blood Urea Nitrogen 13 mg/dL (8-26) Creatinine 0.9 mg/dL (0.7-1.3) Estimated GFR (Cockcroft-Gault) 85.5 Glucose Level 125 mg/dL (70-99) Calcium Level 8.2 mg/dL (8.5-10.1) Triglycerides Level 147 mg/dL (0-150) Cholesterol Level 128 mg/dL (0-200) LDL Cholesterol, Calculated 65 mg/dL (0-100) VLDL Cholesterol, Calculated 29 mg/dL (0-40) Non-HDL Cholesterol Calculated 94 mg/dL (0-129) HDL Cholesterol 34 mg/dL (40-60) Cholesterol/HDL Ratio 3.8 Laboratory Tests Test 02/06/17 03:50 White Blood Count 9.1 x10^3/uL (4.0-11.0) Red Blood Count 4.37 x10^6/uL (4.30-5.70) Hemoglobin 14.1 g/dL (13.0-17.5) Hematocrit 41.8 % (39.0-53.0) Mean Corpuscular Volume 96 fL (79-100) Mean Corpuscular Hemoglobin 32 pg (25-35) Mean Corpuscular Hemoglobin Concent 34 g/dL (31-37) Red Cell Distribution Width 13.3 % (11.5-14.5) Platelet Count 178 x10^3/uL (140-400) Sodium Level 138 mmol/L (136-145) Potassium Level 3.7 mmol/L (3.5-5.1) Chloride Level 105 mmol/L (98-107) Carbon Dioxide Level 24 mmol/L (21-32) Anion Gap 9 (6-14) Blood Urea Nitrogen 13 mg/dL (8-26) Creatinine 0.9 mg/dL (0.7-1.3) Estimated GFR (Cockcroft-Gault) 85.5 Glucose Level 125 mg/dL (70-99) Calcium Level 8.2 mg/dL (8.5-10.1) Triglycerides Level 147 mg/dL (0-150) Cholesterol Level 128 mg/dL (0-200) LDL Cholesterol, Calculated 65 mg/dL (0-100) VLDL Cholesterol, Calculated 29 mg/dL (0-40) Non-HDL Cholesterol Calculated 94 mg/dL (0-129) HDL Cholesterol 34 mg/dL (40-60) Cholesterol/HDL Ratio 3.8 Medications Current Medications Aspirin (Children'S Aspirin) 324 mg 1X ONCE PO Last administered on 06:56; Start 02/04/17 at 07:00; Stop 02/04/17 at 07:01; Status DC Nitroglycerin (Nitrostat) 0.4 mg PRN Q5MIN PRN SL CP RATING > 1/10; Start 02/09 at 06:30; Stop 02/05/17 at 06:29; Status DC Fentanyl Citrate (Fentanyl 2ml Vial) 50 mcg PRN Q15MIN PRN IV PAIN GREATER THAN 3/10; Start 02/04/17 at 06:30; Stop 02/05/17 at 06:29; Status DC Sodium Chloride 1,000 ml @ 125 mls/hr Q8H IV Last administered on 02/04/17 06:57; Start 02/04/17 at 07:00; Stop 02/04/17 at 12:54; Status DC Ondansetron HCl (Zofran) 4 mg 1X ONCE IV ; Start 02/04/17 at 07:00; Stop 02/09 at 07:01; Status DC Ondansetron HCl (Zofran) 4 mg PRN Q8HRS PRN IV NAUSEA/VOMITING; Start at 07:30; Stop 02/04/17 at 09:24; Status DC Fentanyl Citrate (Fentanyl 2ml Vial) 50 mcg PRN Q2HR PRN IV PAIN; Start at 07:30; Stop 02/05/17 at 07:29; Status DC Sodium Chloride 1,000 ml @ 125 mls/hr Q8H IV Last administered on 02/04/17 10:27; Start 02/04/17 at 07:20; Stop 02/04/17 at 18:34; Status DC Heparin Sodium (Porcine) (Heparin Sodium) 4,000 unit 1X ONCE IV Last administered on 02/04/17 08:46; Start 02/04/17 at 07:30; Stop 02/04/17 at 07 :31; Status DC Heparin Sodium/ Dextrose 500 ml @ 0 mls/hr CONT PRN IV SEE I/O RECORD Last administered on 02/04/17 08:45; Start 02/04/17 at 07:30; Stop 02/06/17 at 13 :32; Status DC Heparin Sodium (Porcine) (Heparin Sodium) 2,400 unit PRN Q6HRS PRN IV FOR UFH LEVEL LESS THAN 0.2 Last administered on 02/04/17 22:13; Start 02/04/17 at 07 :30; Stop 02/06/17 at 13:33; Status DC Ondansetron HCl (Zofran) 4 mg PRN Q6HRS PRN IV NAUSEA/VOMITING; Start at 09:30; Stop 02/05/17 at 09:29; Status DC Acetaminophen (Tylenol) 500 mg PRN Q6HRS PRN PO MILD PAIN / TEMP Last administered on 02/05/17 14:41; Start 02/04/17 at 09:30; Stop 02/06/17 at 13 :31; Status DC Aspirin (Adrianne Aspirin) 325 mg DAILY PO ; Start 02/05/17 at 09:00; Stop at 09:00; Status DC Clopidogrel Bisulfate (Plavix) 75 mg DAILY PO Last administered on 02/06/17 09:27; Start 02/05/17 at 09:00 Hydrochlorothiazide (Hydrodiuril) 25 mg DAILY PO Last administered on 09:27; Start 02/05/17 at 09:00 Simvastatin (Zocor) 40 mg HS PO Last administered on 02/05/17 20:33; Start 02/04/17 at 21:00 Non-Formulary Medication 250 mg DAILY PO ; Start 02/05/17 at 09:00; Stop 02/05 at 09:00; Status DC Aspirin (Children'S Aspirin) 81 mg DAILY PO Last administered on 02/05/17 08: 11; Start 02/05/17 at 09:00; Stop 02/05/17 at 15:08; Status DC Losartan Potassium (Cozaar) 50 mg DAILY PO Last administered on 02/06/17 09: 28; Start 02/04/17 at 13:00 Metoprolol Succinate (Toprol Xl) 50 mg DAILY PO Last administered on 09:28; Start 02/04/17 at 13:00 Sodium Chloride 1,000 ml @ 60 mls/hr [id number] IV ; Start 02/04/17 at 18:30; Stop 02/04/17 at 18:34; Status DC Sodium Chloride 1,000 ml @ 60 mls/hr [id number] IV Last administered on t 19:00; Start 02/04/17 at 19:00; Stop 02/05/17 at 12:59; Status DC Alprazolam (Xanax) 0.25 mg PRN Q6HRS PRN PO ANXIETY / AGITATION Last administered on 02/05/17t 20:34; Start 02/04/17 at 19:00 Info (Anti-Coagulation Monitoring By Pharmacy) 1 each PRN DAILY PRN MC SEE COMMENTS; Start 02/05/17 at 08:15; Status Cancel Heparin Sodium/ Sodium Chloride 500 ml @ As Directed STK-MED ONCE .ROUTE ; Start 02/05/17 at 10:25; Stop 02/05/17 at 10:26; Status DC Iohexol (Omnipaque 300 Mg/ml) 100 ml STK-MED ONCE .ROUTE ; Start 02/05/17 at 10 :25; Stop 02/05/17 at 10:26; Status DC Lidocaine HCl 20 ml STK-MED ONCE .ROUTE ; Start 02/05/17 at 10:25; Stop at 10:26; Status DC Fentanyl Citrate (Fentanyl 2ml Vial) 100 mcg STK-MED ONCE .ROUTE ; Start at 10:58; Stop 02/05/17 at 10:59; Status DC Midazolam HCl (Versed) 2 mg STK-MED ONCE .ROUTE ; Start 02/05/17 at 10:58; Stop 02/05/17 at 10:59; Status DC Fentanyl Citrate (Fentanyl 2ml Vial) 100 mcg STK-MED ONCE .ROUTE ; Start at 11:24; Stop 02/05/17 at 11:25; Status DC Midazolam HCl (Versed) 2 mg STK-MED ONCE .ROUTE ; Start 02/05/17 at 11:24; Stop 02/05/17 at 11:25; Status DC Heparin Sodium (Porcine) (Heparin Sodium) 10,000 unit STK-MED ONCE .ROUTE ; Start 02/05/17 at 11:24; Stop 02/05/17 at 11:25; Status DC Tirofiban/Sodium Chloride 250 ml @ As Directed STK-MED ONCE IV ; Start at 11:25; Stop 02/05/17 at 11:26; Status DC Heparin Sodium/ Sodium Chloride 1,000 unit 1X ONCE IART Last administered on 02/05/17 12:00; Start 02/05/17 at 12:00; Stop 02/05/17 at 12:01; Status DC Midazolam HCl (Versed) 2 mg 1X ONCE IV Last administered on 02/05/17 12:00; Start 02/05/17 at 12:00; Stop 02/05/17 at 12:01; Status DC Fentanyl Citrate (Fentanyl 2ml Vial) 150 mcg 1X ONCE IV Last administered on 02/05/17 12:00; Start 02/05/17 at 12:00; Stop 02/05/17 at 12:01; Status DC Iohexol (Omnipaque 300 Mg/ml) 120 ml 1X ONCE IART Last administered on 12:00; Start 02/05/17 at 12:00; Stop 02/05/17 at 12:01; Status DC Heparin Sodium (Porcine) (Heparin Sodium) 6,000 unit 1X ONCE IV Last administered on 02/05/17 12:00; Start 02/05/17 at 12:00; Stop 02/05/17 at 12 :01; Status DC Lidocaine HCl 20 ml 1X ONCE IJ Last administered on 02/05/17 12:00; Start 02/05/17 at 12:00; Stop 02/05/17 at 12:01; Status DC Tirofiban/Sodium Chloride 250 ml @ 0 mls/hr CONT PRN IV PER PROTOCOL; Start at 11:32; Stop 02/06/17 at 02:03; Status DC Heparin Sodium/ Dextrose 500 ml @ As Directed STK-MED ONCE IV ; Start at 11:58; Stop 02/05/17 at 11:59; Status DC Sodium Chloride 1,000 ml @ 75 mls/hr [id number] IV Last administered on 02:15; Start 02/05/17 at 12:26 Tirofiban/Sodium Chloride 250 ml @ 0 mls/hr CONT PRN IV PER PROTOCOL Last administered on 02/06/17 02:15; Start 02/05/17 at 12:30; Stop 02/06/17 at 06 :29; Status DC Aspirin (Ecotrin) 325 mg 1X ONCE PO Last administered on 02/05/17 13:19; Start 02/05/17 at 12:30; Stop 02/05/17 at 12:37; Status DC Aspirin (Ecotrin) 325 mg DAILYWBKFT PO Last administered on 02/06/17 09:27; Start 02/06/17 at 08:00 Clopidogrel Bisulfate (Plavix) 75 mg DAILYWBKFT PO ; Start 02/06/17 at 08:00; Stop 02/06/17 at 08:00; Status DC Acetaminophen (Tylenol) 650 mg PRN Q6HRS PRN PO MILD PAIN / TEMP; Start at 12:30 Fentanyl Citrate (Fentanyl 2ml Vial) 50 mcg PRN Q1HR PRN IV MODERATE OR SEVERE PAIN; Start 02/05/17 at 12:30 Nitroglycerin (Nitrostat) 0.4 mg PRN Q5MIN PRN SL CHEST PAIN; Start 02/05/17 at 12:30 Acetaminophen/ Hydrocodone Bitart (Lortab 5/325) 1 tab PRN Q4HRS PRN PO MODERATE - SEVERE PAIN Last administered on 02/05/17 20:33; Start 02/05/17 at 12:30 Enalaprilat (Vasotec) 1.25 mg PRN Q6HRS PRN IV HYPERTENSION, SEE COMMENTS; Start 02/05/17 at 14:30 Active Scripts Active Reported Losartan Potassium 50 Mg Tablet 50 Mg PO DAILY Metoprolol Succinate ( Xl ) (Metoprolol Succinate) 25 Mg Tab.er.24h 50 Mg PO DAILY Aspirin 325 Mg Tablet 325 Mg PO DAILY Clopidogrel (Clopidogrel Bisulfate) 75 Mg Tablet 75 Mg PO DAILY Hydrochlorothiazide Tablet (Hydrochlorothiazide) 25 Mg Tablet 25 Mg PO DAILY Simvastatin 40 Mg Tablet 40 Mg PO HS Vitals/I & O Vital Sign - Last 24 Hours 02/05/17 02/05/17 02/05/17 02/05/17 15:45 19:40 20:00 20:33 Temp 97.6 97.6 Pulse 57 Resp 18 B/P (MAP) 141/65 (90) 134/64 (87) Pulse Ox 98 98 O2 Delivery Room Air Room Air Room Air 02/05/17 02/05/17 02/06/17 02/06/17 21:33 23:45 03:45 07:00 Temp 97.8 98.2 97.7 97.8 98.2 97.7 Pulse 65 55 59 Resp 18 16 20 B/P (MAP) 117/55 (75) 134/54 (80) 122/70 (87) Pulse Ox 98 97 98 95 O2 Delivery Room Air Room Air Room Air Room Air 02/06/17 02/06/17 02/06/17 02/06/17 08:00 09:28 09:28 11:00 Temp 96.6 96.6 Pulse 59 59 63 Resp 20 B/P (MAP) 122/70 122/70 126/72 (90) Pulse Ox 97 O2 Delivery Room Air Intake and Output 02/05/17 02/05/17 02/06/17 15:00 23:00 07:00 Intake Total 0 ml 1100 ml 1955 ml Output Total 675 ml Balance 0 ml 425 ml 1955 ml CELE FONG MD Feb 06, 2017 15:30
--- NOTE | 2017-02-06 17:04 | DS ---
DATE OF DISCHARGE: 02/06/2017 DISCHARGE DIAGNOSIS: Non-ST elevation myocardial infarction, status post one stent to right coronary artery on 02/05/2017. HOSPITAL COURSE: The patient is a 62-year-old male, known patient of Dr. Hunter, has history of indwelling stent/CAD; complaint with aspirin 81, Plavix 75, statin, beta larissa, LARISA inhibitor and other medications at home, comes in because of a chest pain. LHC was done, needed a stent, one to RCA. Tolerated the procedure well, ready for home. Advised aspirin 325 full dose. Awaiting Cardiology to see before discharging the patient. The patient seen and examined, discussed with at bedside. The patient wanted to go home. Discussed with BRITTANY Swartz. DISCHARGE DISPOSITION: To home. DISCHARGE MEDICATIONS: Please see MAR, includes aspirin 325, Plavix 75, statin, beta larissa and LARISA inhibitor. CONSULTS PERFORMED: Dr. Hunter. PROCEDURES PERFORMED: [facility], 02/05/2017. DISCHARGE TIME: 31 minutes, greater than 50% counseling. ESTER FONTENOT MD DR: /nts JOB#: [id number] / [id number]
== END 2017-02-06 20:25 | disposition home or self-care (01) | DRG 247 ==
LOC: ER 06:18 → 2 NORTH 07:15 → ER 07:43
PROVIDERS: ADMIT Internal Medicine; ATTEND Internal Medicine
PROC: B2111ZZ Fluoroscopy of Multiple Coronary Arteries using Low Osmolar Contrast (ICD-10-PCS; principal; 2017-02-05)
PROC: 027034Z Dilation of Coronary Artery, One Artery with Drug-eluting Intraluminal Device, Percutaneous Approach (ICD-10-PCS; 2017-02-05)
PROC: B2151ZZ Fluoroscopy of Left Heart using Low Osmolar Contrast (ICD-10-PCS; 2017-02-05)
PROC: 4A023N7 Measurement of Cardiac Sampling and Pressure, Left Heart, Percutaneous Approach (ICD-10-PCS; 2017-02-05)
DX: I21.4 Non-ST elevation (NSTEMI) myocardial infarction (principal); E66.9 Obesity, unspecified; I24.9 Acute ischemic heart disease, unspecified; E78.5 Hyperlipidemia, unspecified; I10 Essential (primary) hypertension; I25.10 Atherosclerotic heart disease of native coronary artery without angina pectoris; Z68.32 Body mass index [BMI] 32.0-32.9, adult; Z79.02 Long term (current) use of antithrombotics/antiplatelets; Z79.82 Long term (current) use of aspirin; Z82.49 Family history of ischemic heart disease and other diseases of the circulatory system; Z95.5 Presence of coronary angioplasty implant and graft
CPT/HCPCS: 36415; 71010; 80048; 80053; 80061; 82553; 83735; 83880; 84484; 85025; 85027; 85347; 85520; 92928; 93005; 93458; 96360; 99152; 99153; 99406; C1769; C1771; C1874; C1887; C1892; G0269; J1644; J2250; J3010; J7030; Q9967; 99285-25; J2001; J3246

== ENCOUNTER 2018-04-23 10:14 | Inpatient (IN) | payer OTHER ==
[~2018-04-23] VITALS: Ht 171.4 cm; Wt 95.0 kg
[~2018-04-23 10:14] MED LIST changes: +AMOX1TAB11 PO; +ASPI-630 PO; +ATOR40TA PO; +HYDR-2145 PO; -HYDR25TA9 PO; +LOSA-73 PO; +METO-239 PO; +PRAS10TA9 PO
[2018-04-23 10:38] LABS: BASO # 0.1 x10^3/uL (0.0-0.2); BASO % 1 % (0-3); EOS # 0.3 x10^3/uL (0.0-0.7); EOS % 4 % (0-3); HEMATOCRIT 43.2 % (39.0-53.0); HEMOGLOBIN 14.7 g/dL (13.0-17.5); LYMPH # 2.3 x10^3/uL (1.0-4.8); LYMPH % 30 % (24-48); MEAN CORPUSCULAR HEMOGLOBIN 32 pg (25-35); MEAN CORPUSCULAR HGB CONC 34 g/dL (31-37); MEAN CORPUSCULAR VOLUME 95 fL (79-100); MONO # 0.8 x10^3/uL (0.0-1.1); MONO % 10 % (0-9); NEUT # 4.2 x10^3uL (1.8-7.7); NEUT % 55 % (31-73); PLATELET COUNT 211 x10^3/uL (140-400); RED BLOOD COUNT 4.54 x10^6/uL (4.30-5.70); RED CELL DISTRIBUTION WIDTH 14.4 % (11.5-14.5); WHITE BLOOD COUNT 7.7 x10^3/uL (4.0-11.0)
[2018-04-23] MEDS ORDERED: ASPIRIN CHEWABLE 81 MG TABLET. PO ONE (10:45)
[2018-04-23] MEDS ORDERED: NITROGLYCERIN SUBLINGUAL 0.4 MG BOTTLE OF 25. SL PRN (10:45)
[2018-04-23 10:48] LABS: CALCIUM 8.9 mg/dL (8.5-10.1); GFR 75.5; POTASSIUM 3.7 mmol/L (3.5-5.1)
--- NOTE | 2018-04-23 10:48 | RAD ---
EXAM: Chest, single view. HISTORY: Chest pain. COMPARISON: 03/10/2018. FINDINGS: A frontal view of the chest is obtained. There is no infiltrate, pleural effusion or pneumothorax. The heart is normal in size. There is chronic appearing mild diffuse interstitial prominence. IMPRESSION: No acute pulmonary finding. Electronically signed by: Chiquis Randhawa MD (04/23/2018 10:45 AM) [place] [id number]
[2018-04-23 10:54] LABS: ALBUMIN 3.5 g/dL (3.4-5.0); DIRECT BILIRUBIN 0.1 mg/dL (0.0-0.2); TOTAL BILIRUBIN 0.4 mg/dL (0.2-1.0); TOTAL PROTEIN 6.8 g/dL (6.4-8.2)
--- NOTE | 2018-04-23 12:55 | PHYS DOC ---
Past Medical History Past Medical History: CAD, High Cholesterol, Hypertension Past Surgical History: Other Additional Past Surgical Histo: cardiac stent, bilat shoulder Alcohol Use: Heavy Drug Use: None Adult General Chief Complaint Chief Complaint: CHEST PAIN HPI HPI 63-year-old male presenting to the emergency department today with chest pain. His chest pain has been going on for approximately 5 days. It is worse when he walks. He has a history of [place] with stenting by Dr. Hunter. He took a baby aspirin prior to arrival. Now he reports being pain-free. The pain is a burning pressure sensation that radiates to the neck. Medical history: Coronary artery disease hyperlipidemia and hypertension Surgical history: History of stenting and bilateral shoulder surgeries. Social history denies drinking or IV drug use. Review of systems is negative for abdominal pain nausea vomiting diaphoresis fevers or chills. All other review of systems is negative unless otherwise noted in history of present illness. ED course: 63-year-old male presenting with chest pain. On arrival EKG obtained which shows sinus rhythm with a regular rate. ST segments congruent. Not suggestive of ACS. Vital signs are remarkable for mild high blood pressure. Troponin is negative. Labs are within normal limits. We will admit the patient for serial cardiac enzymes and cardiology consultation. I spoke with Dr. Brown who accepts patient for admission. Review of Systems Review of Systems SEE ABOVE. Current Medications Current Medications Current Medications Medications (Trade) Dose Ordered Sig/Rc Start Time Stop Time Status Last Admin Dose Admin Aspirin (Children'S Aspirin) 243 mg 1X ONCE 04/23/18 10:45 04/23/18 10:47 DC 04/23/18 10:52 243 MG Nitroglycerin (Nitrostat) 0.4 mg PRN Q5MIN PRN 04/23/18 10:45 Allergies Allergies Allergies Coded Allergies Type Severity Reaction Last Updated Verified No Known Drug Allergies 07/09/13 No Physical Exam Physical Exam SEE ABOVE Constitutional: Well developed, well nourished, no acute distress, non-toxic appearance. [] HENT: Normocephalic, atraumatic, bilateral external ears normal, oropharynx moist, no oral exudates, nose normal. [] Eyes: PERRLA, EOMI, conjunctiva normal, no discharge. [] Neck: Normal range of motion, no tenderness, supple, no stridor. [] Cardiovascular:Heart rate regular rhythm, no murmur [] Lungs & Thorax: Bilateral breath sounds clear to auscultation [] Abdomen: Bowel sounds normal, soft, no tenderness, no masses, no pulsatile masses. [] Skin: Warm, dry, no erythema, no rash. [] Back: No tenderness, no CVA tenderness. [] Extremities: No tenderness, no cyanosis, no clubbing, ROM intact, no edema. [] Neurologic: Alert and oriented X 3, normal motor function, normal sensory function, no focal deficits noted. [] Psychologic: Affect normal, judgement normal, mood normal. [] Current Patient Data Vital Signs Vital Signs Date Time Temp Pulse Resp B/P (MAP) Pulse Ox O2 Delivery O2 Flow Rate FiO2 04/23/18 11:11 52 14 132/60 (84) 96 Room Air 04/23/18 10:20 97.7 97.7 Lab Values Laboratory Tests Test 04/23/18 10:25 White Blood Count 7.7 x10^3/uL (4.0-11.0) Red Blood Count 4.54 x10^6/uL (4.30-5.70) Hemoglobin 14.7 g/dL (13.0-17.5) Hematocrit 43.2 % (39.0-53.0) Mean Corpuscular Volume 95 fL (79-100) Mean Corpuscular Hemoglobin 32 pg (25-35) Mean Corpuscular Hemoglobin Concent 34 g/dL (31-37) Red Cell Distribution Width 14.4 % (11.5-14.5) Platelet Count 211 x10^3/uL (140-400) Neutrophils (%) (Auto) 55 % (31-73) Lymphocytes (%) (Auto) 30 % (24-48) Monocytes (%) (Auto) 10 % (0-9) H Eosinophils (%) (Auto) 4 % (0-3) H Basophils (%) (Auto) 1 % (0-3) Neutrophils # (Auto) 4.2 x10^3uL (1.8-7.7) Lymphocytes # (Auto) 2.3 x10^3/uL (1.0-4.8) Monocytes # (Auto) 0.8 x10^3/uL (0.0-1.1) Eosinophils # (Auto) 0.3 x10^3/uL (0.0-0.7) Basophils # (Auto) 0.1 x10^3/uL (0.0-0.2) Prothrombin Time 13.0 SEC (11.7-14.0) Prothrombin Time INR 1.0 (0.8-1.1) PTT 28 SEC (24-38) Sodium Level 140 mmol/L (136-145) Potassium Level 3.7 mmol/L (3.5-5.1) Chloride Level 102 mmol/L (98-107) Carbon Dioxide Level 28 mmol/L (21-32) Anion Gap 10 (6-14) Blood Urea Nitrogen 12 mg/dL (8-26) Creatinine 1.0 mg/dL (0.7-1.3) Estimated GFR (Cockcroft-Gault) 75.5 Glucose Level 221 mg/dL (70-99) H Calcium Level 8.9 mg/dL (8.5-10.1) Total Bilirubin 0.4 mg/dL (0.2-1.0) Direct Bilirubin 0.1 mg/dL (0.0-0.2) Aspartate Amino Transferase (AST) 24 U/L (15-37) Alanine Aminotransferase (ALT) 39 U/L (16-63) Alkaline Phosphatase 95 U/L (46-116) Troponin I Quantitative 0.017 ng/mL (0.000-0.055) OH-Quz-X-Type Natriuretic Peptide 244 pg/mL (0-124) H Total Protein 6.8 g/dL (6.4-8.2) Albumin 3.5 g/dL (3.4-5.0) Lipase 224 U/L (73-393) Laboratory Tests 04/23/18 10:25 Laboratory Tests 04/23/18 10:25 EKG EKG [] Radiology/Procedures Radiology/Procedures [] Course & Med Decision Making Course & Med Decision Making Pertinent Labs and Imaging studies reviewed. (See chart for details) [] Dragon Disclaimer Dragon Disclaimer This electronic medical record was generated, in whole or in part, using a voice recognition dictation system. Departure Departure Impression: Primary Impression: Chest pain Disposition: ADMITTED INPATIENT Admitting Physician: Natalia Brown Condition: STABLE Referrals: NO PCP (PCP) ASIF WALKER MD Apr 23, 2018 12:55
[2018-04-23] MEDS ORDERED: MORPHINE SULFATE 2 MG/ML VIAL. IV PRN (13:00)
[2018-04-23] MEDS ORDERED: ONDANSETRON PF 4 MG/2 ML VIAL. IV PRN (13:00)
--- NOTE | 2018-04-23 13:24 | PDOC2 ---
LINDSEY ROMERO CHUTE WORKER 04/23/18 1323: CARDIAC CONSULT DATE OF CONSULT Date of Consult DATE: 04/23/18 TIME: 13:13 REASON FOR CONSULT Reason for Consult: Chest pain REFERRING PHYSICIAN Referring Physician: Dr. Ham SOURCE Source: Chart review, Patient HISTORY OF PRESENT ILLNESS HISTORY OF PRESENT ILLNESS This is a 63 yo male, with a history of CAD s/p PCI/stent, HTN, HLP, and severe ISR of the OM1 overlapping stents, treated with PTCA on 03/10/18, who present with complaints of chest pain. Patient reports pain has been intermittent for the last week. Describes as heaviness in his central chest. Radiates up to his left neck. Associated with SOA. No dizziness, diaphoresis, palpitations, nausea/vomiting, orthopnea, or LE edema. Pain generally occurs at rest, but has now been occurring at night and occasionally while sitting watching television. Patient reports pain to be consistent to what he experienced in February. Reports compliance with medication including DAPT with ASA and Effient. PAST MEDICAL HISTORY Past Medical History Cardiovascular: CAD, HTN, Hyperlipidemia Pulmonary: Other (chronic tobaccoism) GI: No pertinent hx Heme/Onc: No pertinent hx Hepatobiliary: No pertinent hx Psych: No pertinent hx Musculoskeletal: Osteoarthritis Rheumatologic: No pertinent hx Infectious disease: No pertinent hx ENT: Sincusitis Renal/: No pertinent hx Endocrine: No pertinent hx Dermatology: No pertinent hx Cardiovascular: Hyperlipidemia PAST SURGICAL HISTORY Past Surgical History Arthroscopy (2 left and 1 right RTC repair), Other (PCI/stent 2012, 2017, and ISR of the OM1 overlapping stents, treated with PTCA on 03/10/18) FAMILY HISTORY Family History: Coronary Artery Disease SOCIAL HISTORY Social History Smoke: 1 pack per day (>40 yrs) ALCOHOL: heavy Lives: with Family CURRENT MEDICATIONS CURRENT MEDICATIONS Current Medications Medications (Trade) Dose Ordered Sig/Rc Route PRN Reason Start Time Stop Time Status Last Admin Dose Admin Aspirin (Children'S Aspirin) 243 mg 1X ONCE PO 04/23/18 10:45 04/23/18 10:47 DC 04/23/18 10:52 ALLERGIES ALLERGIES: Coded Allergies: No Known Drug Allergies (Unverified , 07/09/13) ROS Review of System 14 point ROS conducted with pertinent positives noted above in HPI. PHYSICAL EXAM PHYSICAL EXAM General: Alert, Oriented X3, Cooperative, No acute distress HEENT: Atraumatic, Mucous membr. moist/pink Lungs: Clear to auscultation, Normal air movement Heart: Regular rate (SR/SB), Normal S1, Normal S2, No murmurs Abdomen: Soft, No tenderness Extremities: No cyanosis, No edema Skin: No breakdown, No significant lesion Neuro: Normal speech, Sensation intact Psych/Mental Status: Mental status NL, Mood NL MUSCULOSKELETAL: Osteoarthritic changes both hands VITALS VITALS Vital Signs Date Time Temp Pulse Resp B/P (MAP) Pulse Ox O2 Delivery O2 Flow Rate FiO2 04/23/18 12:41 52 17 160/74 (102) 94 Room Air 04/23/18 10:20 97.7 97.7 LABS Lab: Laboratory Tests Test 04/23/18 10:25 White Blood Count 7.7 x10^3/uL (4.0-11.0) Red Blood Count 4.54 x10^6/uL (4.30-5.70) Hemoglobin 14.7 g/dL (13.0-17.5) Hematocrit 43.2 % (39.0-53.0) Mean Corpuscular Volume 95 fL (79-100) Mean Corpuscular Hemoglobin 32 pg (25-35) Mean Corpuscular Hemoglobin Concent 34 g/dL (31-37) Red Cell Distribution Width 14.4 % (11.5-14.5) Platelet Count 211 x10^3/uL (140-400) Neutrophils (%) (Auto) 55 % (31-73) Lymphocytes (%) (Auto) 30 % (24-48) Monocytes (%) (Auto) 10 % (0-9) Eosinophils (%) (Auto) 4 % (0-3) Basophils (%) (Auto) 1 % (0-3) Neutrophils # (Auto) 4.2 x10^3uL (1.8-7.7) Lymphocytes # (Auto) 2.3 x10^3/uL (1.0-4.8) Monocytes # (Auto) 0.8 x10^3/uL (0.0-1.1) Eosinophils # (Auto) 0.3 x10^3/uL (0.0-0.7) Basophils # (Auto) 0.1 x10^3/uL (0.0-0.2) Prothrombin Time 13.0 SEC (11.7-14.0) Prothromb Time International Ratio 1.0 (0.8-1.1) Activated Partial Thromboplast Time 28 SEC (24-38) Sodium Level 140 mmol/L (136-145) Potassium Level 3.7 mmol/L (3.5-5.1) Chloride Level 102 mmol/L (98-107) Carbon Dioxide Level 28 mmol/L (21-32) Anion Gap 10 (6-14) Blood Urea Nitrogen 12 mg/dL (8-26) Creatinine 1.0 mg/dL (0.7-1.3) Estimated GFR (Cockcroft-Gault) 75.5 Glucose Level 221 mg/dL (70-99) Calcium Level 8.9 mg/dL (8.5-10.1) Total Bilirubin 0.4 mg/dL (0.2-1.0) Direct Bilirubin 0.1 mg/dL (0.0-0.2) Aspartate Amino Transf (AST/SGOT) 24 U/L (15-37) Alanine Aminotransferase (ALT/SGPT) 39 U/L (16-63) Alkaline Phosphatase 95 U/L (46-116) Troponin I Quantitative 0.017 ng/mL (0.000-0.055) QV-Noc-P-Type Natriuretic Peptide 244 pg/mL (0-124) Total Protein 6.8 g/dL (6.4-8.2) Albumin 3.5 g/dL (3.4-5.0) Lipase 224 U/L (73-393) ECHOCARDIOGRAM ECHOCARDIOGRAM <Conclusion> The left ventricular systolic function is normal and the ejection fraction is within normal range. The Ejection Fraction is 50-55%. DATE: 03/10/18 165 HEART CATH HEART CATH Conclusion 1. Normal left sided filling pressures. 2. Normal LV systolic function. 3. Severe ISR of the OM1 overlapping stents, successful treated with PTCA using a 2.75mm Flextome and 3.0 NC balloon with post IVUS revealing no residual stenosis, good stent expansion and ASHWINI 3 flow. Recommendations ASA 81mg daily Prasugrel 10mg daily (Patient previously on Plavix, given Prasugrel 30mg load in director of labor and delivery) High dose statin therapy If there is recurrent ISR, consider laser atherectomy. DATE: 03/10/18 1727 ASSESSMENT/PLAN ASSESSMENT/PLAN 1. Unstable angina 2. CAD: stent in 2012, 2016. Severe ISR of the OM1 overlapping stents, successful treated with PTCA 03/10/18 EF and WM nml 3. HTN: controlled 4. HLP; statin 5. Sinus bradycardia,; asymptomatic. HR in 50's. 6. Chronic tobaccoism: 40 pk yr. Quit Friday. 7. Chronic ETOH Recommendations NPO p MN Given h/o ISR and unstable angina, recommend cardiac catheterization for further evaluation. If there is recurrent ISR, consider referral for laser atherectomy. Smoking cessation encouraged. MICHAEL MCKEON MD 04/23/18 2312: CARDIAC CONSULT ASSESSMENT/PLAN ASSESSMENT/PLAN Pt. seen and examined. Agree with above Transformation Coach note. Plan for cath tomorrow. If this is recurrent OM1 stenosis/occlusion, plan for laser atherectomy and repeat PCI. Discussed with patient and family LINDSEY ROMERO APRN Apr 23, 2018 13:23 MICHAEL MCKEON MD Apr 23, 2018 23:12
--- NOTE | 2018-04-23 13:35 | EKG ---
[facility] [address] [place] [address] Test Date: 2018-04-23 Test Time: 10:20:58 Pat Name: PILO CRESPO Department: Room: 244 1 Gender: M Bilingual Executive Assistant: : 1955 Requested By: ASIF WALKER Order Number: [id number] Reading MD: Ray Vang MD Measurements Intervals [place] Rate: 60 P: 45 LA: 162 QRS: 40 QRSD: 100 T: 24 QT: 410 QTc: 410 Interpretive Statements SINUS RHYTHM ATRIAL PREMATURE COMPLEX(ES) Electronically Signed On 04-28-2018 7:53:17 C APPLICATION DEVELOPER by Ray Vang MD
--- NOTE | 2018-04-23 13:47 | PDOC1 ---
History and Physical Date of Admission Date of Admission DATE: 04/23/18 TIME: 13:41 Identification/Chief Complaint Chief Complaint Chest pains at rest Source Source: Caregiver, Chart review, Patient History of Present Illness History of Present Illness Very pleasant 63-year-old male, obesity BMI 32, known personal history of CAD with 2 stents in 2012 & 2016, previous patient of Dr. Hunter but now has seen Dr. Vang, chest pain at rest. No other symptoms. He is nontoxic appearing and denies chest pain currently. Vital signs and chest x-ray and first set enzymes negative. Discussed with at bedside. Cardiology will yet to see. Patient is down to not smoking for about 3-4 days now, was a previous a pack-a-day smoker. BUt before friday he was down to 0.5 pack a day HE was Last year February 2017 for chest pain - might have had stress test that at that time? Past Medical History Cardiovascular: CAD, HTN, Hyperlipidemia Pulmonary: Other GI: No pertinent hx Heme/Onc: No pertinent hx Hepatobiliary: No pertinent hx Psych: No pertinent hx Musculoskeletal: Osteoarthritis Rheumatologic: No pertinent hx Infectious disease: No pertinent hx Renal/: No pertinent hx Endocrine: No pertinent hx Past Surgical History Past Surgical History: Arthroscopy, Other Family History Family History: Coronary Artery Disease Social History Smoke: <1 pack per day ALCOHOL: none Drugs: None Current Problem List Problem List Problems Medical Problems: (1) Chest pain Status: Acute Current Medications Current Medications Current Medications Nitroglycerin (Nitrostat) 0.4 mg PRN Q5MIN PRN SL CHEST PAIN; Start 04/23/18 at 10:45 Aspirin (Children'S Aspirin) 243 mg 1X ONCE PO Last administered on 04/23/18at 10:52; Start 04/23/18 at 10:45; Stop 04/23/18 at 10:47; Status DC Ondansetron HCl (Zofran) 4 mg PRN Q8HRS PRN IV NAUSEA/VOMITING; Start 04/23/18 at 13:00; Stop 04/24/18 at 12:59 Morphine Sulfate (Morphine Sulfate) 2 mg PRN Q2HR PRN IV PAIN; Start 04/23/18 at 13:00; Stop 04/24/18 at 12:59 Active Scripts Active Reported Aspirin 81 Mg Tab.chew 81 Mg PO DAILY Lipitor (Atorvastatin Calcium) 40 Mg Tablet 40 Mg PO HS Effient (Prasugrel Hcl) 10 Mg Tablet 10 Mg PO DAILY Losartan Potassium 50 Mg Tablet 50 Mg PO DAILY Metoprolol Succinate ( Xl ) (Metoprolol Succinate) 25 Mg Tab.er.24h 50 Mg PO DAILY Hydrochlorothiazide Tablet (Hydrochlorothiazide) 25 Mg Tablet 25 Mg PO DAILY Allergies Allergies: Coded Allergies: No Known Drug Allergies (Unverified , 07/09/13) ROS Review of System As per history of present illness, the rest of ROS 14 point negative Physical Exam General: Alert, Oriented X3, Cooperative, No acute distress HEENT: Atraumatic, PERRLA, EOMI Lungs: Clear to auscultation, Normal air movement Heart: S1S2, RRR, no thrills, no rubs, no gallops, no murmurs Cardiovascular: S1, S2 Abdomen: Normal bowel sounds, Soft, No tenderness, No hepatosplenomegaly, No masses Male Genitals Exam: normal genitalia, normal prostate PELVIC: Nml ext genitalia Extremities: No clubbing, No cyanosis, No edema, Normal pulses, No tenderness/ swelling Skin: No rashes, No breakdown, No significant lesion Neuro: Normal gait, Normal speech, Strength at 5/5 X4 ext, Normal tone, Sensation intact, Cranial nerves 3-12 NL, Reflexes 2+ Psych/Mental Status: Mental status NL, Mood NL Vitals Vitals Vital Signs Date Time Temp Pulse Resp B/P (MAP) Pulse Ox O2 Delivery O2 Flow Rate FiO2 04/23/18 12:41 52 17 160/74 (102) 94 Room Air 04/23/18 10:20 97.7 97.7 Labs Labs Laboratory Tests Test 04/23/18 10:25 White Blood Count 7.7 x10^3/uL (4.0-11.0) Red Blood Count 4.54 x10^6/uL (4.30-5.70) Hemoglobin 14.7 g/dL (13.0-17.5) Hematocrit 43.2 % (39.0-53.0) Mean Corpuscular Volume 95 fL (79-100) Mean Corpuscular Hemoglobin 32 pg (25-35) Mean Corpuscular Hemoglobin Concent 34 g/dL (31-37) Red Cell Distribution Width 14.4 % (11.5-14.5) Platelet Count 211 x10^3/uL (140-400) Neutrophils (%) (Auto) 55 % (31-73) Lymphocytes (%) (Auto) 30 % (24-48) Monocytes (%) (Auto) 10 % (0-9) Eosinophils (%) (Auto) 4 % (0-3) Basophils (%) (Auto) 1 % (0-3) Neutrophils # (Auto) 4.2 x10^3uL (1.8-7.7) Lymphocytes # (Auto) 2.3 x10^3/uL (1.0-4.8) Monocytes # (Auto) 0.8 x10^3/uL (0.0-1.1) Eosinophils # (Auto) 0.3 x10^3/uL (0.0-0.7) Basophils # (Auto) 0.1 x10^3/uL (0.0-0.2) Prothrombin Time 13.0 SEC (11.7-14.0) Prothromb Time International Ratio 1.0 (0.8-1.1) Activated Partial Thromboplast Time 28 SEC (24-38) Sodium Level 140 mmol/L (136-145) Potassium Level 3.7 mmol/L (3.5-5.1) Chloride Level 102 mmol/L (98-107) Carbon Dioxide Level 28 mmol/L (21-32) Anion Gap 10 (6-14) Blood Urea Nitrogen 12 mg/dL (8-26) Creatinine 1.0 mg/dL (0.7-1.3) Estimated GFR (Cockcroft-Gault) 75.5 Glucose Level 221 mg/dL (70-99) Calcium Level 8.9 mg/dL (8.5-10.1) Total Bilirubin 0.4 mg/dL (0.2-1.0) Direct Bilirubin 0.1 mg/dL (0.0-0.2) Aspartate Amino Transf (AST/SGOT) 24 U/L (15-37) Alanine Aminotransferase (ALT/SGPT) 39 U/L (16-63) Alkaline Phosphatase 95 U/L (46-116) Troponin I Quantitative 0.017 ng/mL (0.000-0.055) UZ-Brh-Q-Type Natriuretic Peptide 244 pg/mL (0-124) Total Protein 6.8 g/dL (6.4-8.2) Albumin 3.5 g/dL (3.4-5.0) Lipase 224 U/L (73-393) Laboratory Tests Test 04/23/18 10:25 White Blood Count 7.7 x10^3/uL (4.0-11.0) Red Blood Count 4.54 x10^6/uL (4.30-5.70) Hemoglobin 14.7 g/dL (13.0-17.5) Hematocrit 43.2 % (39.0-53.0) Mean Corpuscular Volume 95 fL (79-100) Mean Corpuscular Hemoglobin 32 pg (25-35) Mean Corpuscular Hemoglobin Concent 34 g/dL (31-37) Red Cell Distribution Width 14.4 % (11.5-14.5) Platelet Count 211 x10^3/uL (140-400) Neutrophils (%) (Auto) 55 % (31-73) Lymphocytes (%) (Auto) 30 % (24-48) Monocytes (%) (Auto) 10 % (0-9) Eosinophils (%) (Auto) 4 % (0-3) Basophils (%) (Auto) 1 % (0-3) Neutrophils # (Auto) 4.2 x10^3uL (1.8-7.7) Lymphocytes # (Auto) 2.3 x10^3/uL (1.0-4.8) Monocytes # (Auto) 0.8 x10^3/uL (0.0-1.1) Eosinophils # (Auto) 0.3 x10^3/uL (0.0-0.7) Basophils # (Auto) 0.1 x10^3/uL (0.0-0.2) Prothrombin Time 13.0 SEC (11.7-14.0) Prothromb Time International Ratio 1.0 (0.8-1.1) Activated Partial Thromboplast Time 28 SEC (24-38) Sodium Level 140 mmol/L (136-145) Potassium Level 3.7 mmol/L (3.5-5.1) Chloride Level 102 mmol/L (98-107) Carbon Dioxide Level 28 mmol/L (21-32) Anion Gap 10 (6-14) Blood Urea Nitrogen 12 mg/dL (8-26) Creatinine 1.0 mg/dL (0.7-1.3) Estimated GFR (Cockcroft-Gault) 75.5 Glucose Level 221 mg/dL (70-99) Calcium Level 8.9 mg/dL (8.5-10.1) Total Bilirubin 0.4 mg/dL (0.2-1.0) Direct Bilirubin 0.1 mg/dL (0.0-0.2) Aspartate Amino Transf (AST/SGOT) 24 U/L (15-37) Alanine Aminotransferase (ALT/SGPT) 39 U/L (16-63) Alkaline Phosphatase 95 U/L (46-116) Troponin I Quantitative 0.017 ng/mL (0.000-0.055) UO-Hid-F-Type Natriuretic Peptide 244 pg/mL (0-124) Total Protein 6.8 g/dL (6.4-8.2) Albumin 3.5 g/dL (3.4-5.0) Lipase 224 U/L (73-393) VTE Prophylaxis Ordered VTE Prophylaxis Devices: Yes VTE Pharmacological Prophylaxi: Yes Assessment/Plan Assessment/Plan Chest pain at rest rule out ACS Hypertension, known CAD with 2 stents 2012, 2016 Dyslipidemia-chronic stable Obesity BMI 32 Smoker, he is trying to quit and so far has been off cigarettes for 3-4 days Plan: cycle enzymes, cards consult Home meds I'm waiting to reconcile Discussed with at bedside ESTER FONTENOT MD Apr 23, 2018 13:47
[2018-04-23 15:00] VITALS: BP 149/69
[2018-04-23 19:01] VITALS: BP 129/63
[2018-04-23] MEDS ORDERED: ATORVASTATIN CALCIUM 40 MG TABLET. PO SCH (21:00)
[2018-04-23 23:38] VITALS: BP 127/65
[2018-04-24] VITALS (11 sets, daily range): BP systolic 111–154; BP diastolic 53–87
[2018-04-24 04:34] LABS: BASO # 0.1 x10^3/uL (0.0-0.2); BASO % 1 % (0-3); EOS # 0.4 x10^3/uL (0.0-0.7); EOS % 5 % (0-3); HEMATOCRIT 40.5 % (39.0-53.0); HEMOGLOBIN 13.6 g/dL (13.0-17.5); LYMPH % 35 % (24-48); MEAN CORPUSCULAR HEMOGLOBIN 32 pg (25-35); MEAN CORPUSCULAR HGB CONC 34 g/dL (31-37); MEAN CORPUSCULAR VOLUME 95 fL (79-100); MONO % 11 % (0-9); NEUT % 48 % (31-73); PLATELET COUNT 186 x10^3/uL (140-400); RED BLOOD COUNT 4.28 x10^6/uL (4.30-5.70); RED CELL DISTRIBUTION WIDTH 14.1 % (11.5-14.5); WHITE BLOOD COUNT 8.4 x10^3/uL (4.0-11.0)
[2018-04-24 04:48] LABS: CALCIUM 8.4 mg/dL (8.5-10.1); CREATININE 0.9 mg/dL (0.7-1.3); GFR 85.2; POTASSIUM 3.8 mmol/L (3.5-5.1)
[2018-04-24] MEDS ORDERED: IOHEXOL 300 MG/ML 100ML VIAL. ONE (07:09)
[2018-04-24] MEDS ORDERED: LIDOCAINE 1% PF 2 ML VIAL. ONE (07:09)
[2018-04-24] MEDS ORDERED: PRASUGREL 10 MG TABLET. PO SCH (08:00)
[2018-04-24] MEDS ORDERED: LOSARTAN POTASSIUM 50 MG TABLET. PO SCH (09:00)
[2018-04-24] MEDS ORDERED: hydroCHLOROthiazide 25 MG TABLET PO SCH (09:00)
[2018-04-24] MEDS ORDERED: ASPIRIN CHEWABLE 81 MG TABLET. PO SCH (09:00)
[2018-04-24] MEDS ORDERED: METOPROLOL SUCC 24HR ER 25 MG TAB.ER.24H. PO SCH (09:00)
[2018-04-24] MEDS ORDERED: NITROGLYCERIN 200 MCG/2 ML SYRINGE FOR CATH/VASC LAB. ONE (09:37)
[2018-04-24] MEDS ORDERED: VERAPAMIL 5 MG/2 ML VIAL. ONE (09:37)
[2018-04-24] MEDS ORDERED: MIDAZOLAM HCL/PF 5 MG/5 ML VIAL. ONE (09:37)
[2018-04-24] MEDS ORDERED: fentaNYL PF VIAL 100 MCG/2 ML VIAL ONE (09:37)
[2018-04-24] MEDS ORDERED: HEPARIN for IV BOLUS 10,000 UNIT/10 ML VIAL. ONE (09:37)
[2018-04-24] MEDS ORDERED: LIDOCAINE 1% PF 2 ML VIAL. INJ ONE (09:45)
[2018-04-24] MEDS ORDERED: VERAPAMIL 5 MG/2 ML VIAL. IART ONE (09:45)
[2018-04-24] MEDS ORDERED: HEPARIN for IV BOLUS 10,000 UNIT/10 ML VIAL. IART ONE (09:45)
[2018-04-24] MEDS ORDERED: NITROGLYCERIN 200 MCG/2 ML SYRINGE FOR CATH/VASC LAB. IART ONE (09:45)
[2018-04-24] MEDS ORDERED: fentaNYL PF VIAL 100 MCG/2 ML VIAL IV ONE (09:45)
[2018-04-24] MEDS ORDERED: MIDAZOLAM HCL/PF 5 MG/5 ML VIAL. IV ONE (09:45)
[2018-04-24] MEDS ORDERED: IOHEXOL 300 MG/ML 100ML VIAL. IART ONE (09:45)
--- NOTE | 2018-04-24 10:56 | CARD ---
MR#: [id number] Date of Study: 04/24/2018 Ordering Physician: LINDSEY ROMERO, Referring Physician: ESTER FONTENOT Tech: RT Yumiko (R) APPROVED REPORT Technologist: Susana Wells RT (R) Nurse: Eugenia Fry R.N. Procedure(s) performed: Left heart catheterization, selective coronary angiography and left ventricul ography via right transradial approach Moderate sedation: 40 mins INDICATION The indication(s) include : unstable angina . CSHA Clinical Frailty Scale CSHA Clinical Frailty Scale: Well Heart Failure Heart Failure: No PROCEDURE NARRATIVE After explaining the risks, benefits and alternative options, informed consent was obtained from yfn ent. Patient was brought to the cardiac Insulator Helper and right wrist was prepped and draped in the usual fashion after confirming a positive modified Vishnu's test. Arterial access was obtained in the righ t radial artery and a 6 Vincentian sheath was inserted. 6 Vincentian Contreras catheter was used to perform ravi ective angiography of the left and right coronary arteries. 6 Vincentian pigtail catheter was used to pe rform left ventriculography. Patient tolerated the procedure well. Hemostasis was achieved using TR band. There were no immediate complications. The following findings were noted. FINDINGS 1. Hemodynamics: Left ventricular end-diastolic pressure of 10 mmHg. No pullback gradient across th e aortic valve. 2. Left ventriculography: Normal left ventricle systolic function with ejection fraction estimated at 60%. No significant mitral regurgitation seen. 3. Coronary angiography: a. The left main coronary artery arose from the left sinus of Valsalva, gave rise to the left anteri or descending and left circumflex arteries and did not show any significant stenosis. b. The left anterior descending artery showed 30% stenosis in the proximal to midsegment. c. The left circumflex artery showed 90-95% in-stent restenosis (in the region of double layer of st ents) in the proximal segment of a large obtuse marginal branch. d. The right coronary artery was a large and dominant vessel arising from the right sinus of Valsalv a that showed 30% stenosis in the midsegment. Conclusion 1. Severe single-vessel coronary artery disease, 90-95% in-stent restenosis involving the obtuse mar ginal branch of left circumflex artery 2. Normal left ventricle systolic function with ejection fraction estimated at 60%. Recommendations Since patient developed in-stent restenosis in a month, especially in the region of double layer of s tents, he would benefit from Laser Angioplasty. Aggressive cardiovascular risk factor modification. Signed by : Raymon Felix, Electronically Approved : 04/24/2018 10:56:13
--- NOTE | 2018-04-24 11:45 | PDOC ---
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 Spoke to patient via intercom system to preserve the sterile field. No acute complaints at this time. After cardiac cath , he will be going to dialysis. Cardiology following. Discharge when ok with cardiology. Vitals Vitals Vital Signs Date Time Temp Pulse Resp B/P (MAP) Pulse Ox O2 Delivery O2 Flow Rate FiO2 04/24/18 10:57 72 133/73 04/24/18 10:24 16 97 Nasal Cannula 2.0 04/24/18 07:00 98.0 98.0 Physical Exam Physical Exam Deferred to preserve sterile field. Labs LABS Laboratory Tests Test 04/23/18 15:45 04/23/18 18:00 04/24/18 04:30 Troponin I Quantitative < 0.017 ng/mL (0.000-0.055) < 0.017 ng/mL (0.000-0.055) White Blood Count 8.4 x10^3/uL (4.0-11.0) Red Blood Count 4.28 x10^6/uL (4.30-5.70) Hemoglobin 13.6 g/dL (13.0-17.5) Hematocrit 40.5 % (39.0-53.0) Mean Corpuscular Volume 95 fL (79-100) Mean Corpuscular Hemoglobin 32 pg (25-35) Mean Corpuscular Hemoglobin Concent 34 g/dL (31-37) Red Cell Distribution Width 14.1 % (11.5-14.5) Platelet Count 186 x10^3/uL (140-400) Neutrophils (%) (Auto) 48 % (31-73) Lymphocytes (%) (Auto) 35 % (24-48) Monocytes (%) (Auto) 11 % (0-9) Eosinophils (%) (Auto) 5 % (0-3) Basophils (%) (Auto) 1 % (0-3) Neutrophils # (Auto) 4.0 x10^3uL (1.8-7.7) Lymphocytes # (Auto) 3.0 x10^3/uL (1.0-4.8) Monocytes # (Auto) 1.0 x10^3/uL (0.0-1.1) Eosinophils # (Auto) 0.4 x10^3/uL (0.0-0.7) Basophils # (Auto) 0.1 x10^3/uL (0.0-0.2) Sodium Level 142 mmol/L (136-145) Potassium Level 3.8 mmol/L (3.5-5.1) Chloride Level 106 mmol/L (98-107) Carbon Dioxide Level 26 mmol/L (21-32) Anion Gap 10 (6-14) Blood Urea Nitrogen 15 mg/dL (8-26) Creatinine 0.9 mg/dL (0.7-1.3) Estimated GFR (Cockcroft-Gault) 85.2 Glucose Level 139 mg/dL (70-99) Calcium Level 8.4 mg/dL (8.5-10.1) Review of Systems Review of Systems Complains of weakness and chest pain. Denies headache or shortness of breath. Assessment and Plan Assessmemt and Plan Assessment: Chest pain at rest, rule out ACS CAD with 2 stents in 2012 and 2016 Hypertension Dyslipidemia Obesity Tobacco use Plan: 1. Cardiac monitoring 2. Awaiting cardiac cath results 3. Discussed with Dr. Felix 4. Dialysis later today 5. Monitor labs 6. Home meds 7. PT/OT 8. Appreciate subspecialty input 9. Discharge when ok with cardiology Comment Review of Relevant I have reviewed the following items saundra (where applicable) has been applied. Labs Laboratory Tests Test 04/23/18 10:25 04/23/18 15:45 04/23/18 18:00 04/24/18 04:30 White Blood Count 7.7 x10^3/uL (4.0-11.0) 8.4 x10^3/uL (4.0-11.0) Red Blood Count 4.54 x10^6/uL (4.30-5.70) 4.28 x10^6/uL (4.30-5.70) Hemoglobin 14.7 g/dL (13.0-17.5) 13.6 g/dL (13.0-17.5) Hematocrit 43.2 % (39.0-53.0) 40.5 % (39.0-53.0) Mean Corpuscular Volume 95 fL (79-100) 95 fL (79-100) Mean Corpuscular Hemoglobin 32 pg (25-35) 32 pg (25-35) Mean Corpuscular Hemoglobin Concent 34 g/dL (31-37) 34 g/dL (31-37) Red Cell Distribution Width 14.4 % (11.5-14.5) 14.1 % (11.5-14.5) Platelet Count 211 x10^3/uL (140-400) 186 x10^3/uL (140-400) Neutrophils (%) (Auto) 55 % (31-73) 48 % (31-73) Lymphocytes (%) (Auto) 30 % (24-48) 35 % (24-48) Monocytes (%) (Auto) 10 % (0-9) 11 % (0-9) Eosinophils (%) (Auto) 4 % (0-3) 5 % (0-3) Basophils (%) (Auto) 1 % (0-3) 1 % (0-3) Neutrophils # (Auto) 4.2 x10^3uL (1.8-7.7) 4.0 x10^3uL (1.8-7.7) Lymphocytes # (Auto) 2.3 x10^3/uL (1.0-4.8) 3.0 x10^3/uL (1.0-4.8) Monocytes # (Auto) 0.8 x10^3/uL (0.0-1.1) 1.0 x10^3/uL (0.0-1.1) Eosinophils # (Auto) 0.3 x10^3/uL (0.0-0.7) 0.4 x10^3/uL (0.0-0.7) Basophils # (Auto) 0.1 x10^3/uL (0.0-0.2) 0.1 x10^3/uL (0.0-0.2) Prothrombin Time 13.0 SEC (11.7-14.0) Prothromb Time International Ratio 1.0 (0.8-1.1) Activated Partial Thromboplast Time 28 SEC (24-38) Sodium Level 140 mmol/L (136-145) 142 mmol/L (136-145) Potassium Level 3.7 mmol/L (3.5-5.1) 3.8 mmol/L (3.5-5.1) Chloride Level 102 mmol/L (98-107) 106 mmol/L (98-107) Carbon Dioxide Level 28 mmol/L (21-32) 26 mmol/L (21-32) Anion Gap 10 (6-14) 10 (6-14) Blood Urea Nitrogen 12 mg/dL (8-26) 15 mg/dL (8-26) Creatinine 1.0 mg/dL (0.7-1.3) 0.9 mg/dL (0.7-1.3) Estimated GFR (Cockcroft-Gault) 75.5 85.2 Glucose Level 221 mg/dL (70-99) 139 mg/dL (70-99) Calcium Level 8.9 mg/dL (8.5-10.1) 8.4 mg/dL (8.5-10.1) Total Bilirubin 0.4 mg/dL (0.2-1.0) Direct Bilirubin 0.1 mg/dL (0.0-0.2) Aspartate Amino Transf (AST/SGOT) 24 U/L (15-37) Alanine Aminotransferase (ALT/SGPT) 39 U/L (16-63) Alkaline Phosphatase 95 U/L (46-116) Troponin I Quantitative 0.017 ng/mL (0.000-0.055) < 0.017 ng/mL (0.000-0.055) < 0.017 ng/mL (0.000-0.055) DB-Dml-C-Type Natriuretic Peptide 244 pg/mL (0-124) Total Protein 6.8 g/dL (6.4-8.2) Albumin 3.5 g/dL (3.4-5.0) Lipase 224 U/L (73-393) Laboratory Tests Test 04/23/18 15:45 04/23/18 18:00 04/24/18 04:30 Troponin I Quantitative < 0.017 ng/mL (0.000-0.055) < 0.017 ng/mL (0.000-0.055) White Blood Count 8.4 x10^3/uL (4.0-11.0) Red Blood Count 4.28 x10^6/uL (4.30-5.70) Hemoglobin 13.6 g/dL (13.0-17.5) Hematocrit 40.5 % (39.0-53.0) Mean Corpuscular Volume 95 fL (79-100) Mean Corpuscular Hemoglobin 32 pg (25-35) Mean Corpuscular Hemoglobin Concent 34 g/dL (31-37) Red Cell Distribution Width 14.1 % (11.5-14.5) Platelet Count 186 x10^3/uL (140-400) Neutrophils (%) (Auto) 48 % (31-73) Lymphocytes (%) (Auto) 35 % (24-48) Monocytes (%) (Auto) 11 % (0-9) Eosinophils (%) (Auto) 5 % (0-3) Basophils (%) (Auto) 1 % (0-3) Neutrophils # (Auto) 4.0 x10^3uL (1.8-7.7) Lymphocytes # (Auto) 3.0 x10^3/uL (1.0-4.8) Monocytes # (Auto) 1.0 x10^3/uL (0.0-1.1) Eosinophils # (Auto) 0.4 x10^3/uL (0.0-0.7) Basophils # (Auto) 0.1 x10^3/uL (0.0-0.2) Sodium Level 142 mmol/L (136-145) Potassium Level 3.8 mmol/L (3.5-5.1) Chloride Level 106 mmol/L (98-107) Carbon Dioxide Level 26 mmol/L (21-32) Anion Gap 10 (6-14) Blood Urea Nitrogen 15 mg/dL (8-26) Creatinine 0.9 mg/dL (0.7-1.3) Estimated GFR (Cockcroft-Gault) 85.2 Glucose Level 139 mg/dL (70-99) Calcium Level 8.4 mg/dL (8.5-10.1) Medications Current Medications Nitroglycerin (Nitrostat) 0.4 mg PRN Q5MIN PRN SL CHEST PAIN; Start 04/23/18 at 10:45 Aspirin (Children'S Aspirin) 243 mg 1X ONCE PO Last administered on 04/23/18at 10:52; Start 04/23/18 at 10:45; Stop 04/23/18 at 10:47; Status DC Ondansetron HCl (Zofran) 4 mg PRN Q8HRS PRN IV NAUSEA/VOMITING; Start 04/23/18 at 13:00; Stop 04/24/18 at 12:59 Morphine Sulfate (Morphine Sulfate) 2 mg PRN Q2HR PRN IV PAIN Last administered on 04/23/18at 22:20; Start 04/23/18 at 13:00; Stop 04/24/18 at 12:59 Aspirin (Children'S Aspirin) 81 mg DAILY PO Last administered on 04/24/18at 10:56 ; Start 04/24/18 at 09:00 Atorvastatin Calcium (Lipitor) 40 mg HS PO Last administered on 04/23/18at 21:03 ; Start 04/23/18 at 21:00 Hydrochlorothiazide (Hydrodiuril) 25 mg DAILY PO Last administered on 04/24/18at 10:56; Start 04/24/18 at 09:00 Losartan Potassium (Cozaar) 50 mg DAILY PO Last administered on 04/24/18at 10:57 ; Start 04/24/18 at 09:00 Metoprolol Succinate (Toprol Xl) 50 mg DAILY PO Last administered on 04/24/18at 10:56; Start 04/24/18 at 09:00 Prasugrel (Effient) 10 mg DAILYWBKFT PO Last administered on 04/24/18at 10:56; Start 04/24/18 at 08:00 Lidocaine HCl (Xylocaine-Mpf 1% 2ml Vial) 2 ml STK-MED ONCE .ROUTE ; Start at 07:09; Stop 04/24/18 at 07:10; Status DC Iohexol (Omnipaque 300 Mg/ml) 100 ml STK-MED ONCE .ROUTE ; Start 04/24/18 at 07: 09; Stop 04/24/18 at 07:10; Status DC Heparin Sodium/ Sodium Chloride 1,000 ml @ As Directed STK-MED ONCE .ROUTE ; Start 04/24/18 at 07:09; Stop 04/24/18 at 07:10; Status DC Fentanyl Citrate (Fentanyl 2ml Vial) 100 mcg STK-MED ONCE .ROUTE ; Start at 09:37; Stop 04/24/18 at 09:38; Status DC Midazolam HCl (Versed) 5 mg STK-MED ONCE .ROUTE ; Start 04/24/18 at 09:37; Stop 04/24/18 at 09:38; Status DC Heparin Sodium (Porcine) (Heparin Sodium) 10,000 unit STK-MED ONCE .ROUTE ; Start 04/24/18 at 09:37; Stop 04/24/18 at 09:38; Status DC Verapamil HCl (Verapamil) 5 mg STK-MED ONCE .ROUTE ; Start 04/24/18 at 09:37; Stop 04/24/18 at 09:38; Status DC Nitroglycerin (Nitroglycerin) 200 mcg STK-MED ONCE .ROUTE ; Start 04/24/18 at 09: 37; Stop 04/24/18 at 09:38; Status DC Nitroglycerin (Nitroglycerin) 200 mcg 1X ONCE IART Last administered on 10:21; Start 04/24/18 at 09:45; Stop 04/24/18 at 09:53; Status DC Verapamil HCl (Verapamil) 2.5 mg 1X ONCE IART Last administered on 04/24/18 10 :22; Start 04/24/18 at 09:45; Stop 04/24/18 at 09:53; Status DC Heparin Sodium (Porcine) (Heparin Sodium) 2,500 unit 1X ONCE IART Last administered on 04/24/18 10:21; Start 04/24/18 at 09:45; Stop 04/24/18 at 09:53; Status DC Heparin Sodium/ Sodium Chloride (HEPARIN for ARTERIAL LINE FLUSH) 1,000 unit 1X ONCE IART Last administered on 04/24/18 10:18; Start 04/24/18 at 09:45; Stop 04/24/18 at 09:53; Status DC Midazolam HCl (Versed) 5 mg 1X ONCE IV Last administered on 04/24/18 10:20; Start 04/24/18 at 09:45; Stop 04/24/18 at 09:53; Status DC Fentanyl Citrate (Fentanyl 2ml Vial) 100 mcg 1X ONCE IV Last administered on 10:20; Start 04/24/18 at 09:45; Stop 04/24/18 at 09:53; Status DC Iohexol (Omnipaque 300 Mg/ml) 100 ml 1X ONCE IART Last administered on 10:21; Start 04/24/18 at 09:45; Stop 04/24/18 at 09:53; Status DC Lidocaine HCl (Xylocaine-Mpf 1% 2ml Vial) 2 ml 1X ONCE INJ Last administered on 04/24/18at 10:18; Start 04/24/18 at 09:45; Stop 04/24/18 at 09:53; Status DC Active Scripts Active Reported Aspirin 81 Mg Tab.chew 81 Mg PO DAILY Lipitor (Atorvastatin Calcium) 40 Mg Tablet 40 Mg PO HS Effient (Prasugrel Hcl) 10 Mg Tablet 10 Mg PO DAILY Losartan Potassium 50 Mg Tablet 50 Mg PO DAILY Metoprolol Succinate ( Xl ) (Metoprolol Succinate) 25 Mg Tab.er.24h 50 Mg PO DAILY Hydrochlorothiazide Tablet (Hydrochlorothiazide) 25 Mg Tablet 25 Mg PO DAILY Vitals/I & O Vital Sign - Last 24 Hours 04/23/18 04/23/18 04/23/18 04/23/18 11:41 12:11 12:41 15:00 Temp 97.8 97.8 Pulse 60 48 52 55 Resp 16 16 17 18 B/P (MAP) 144/65 (91) 136/63 (87) 160/74 (102) 149/69 (95) Pulse Ox 96 96 94 97 O2 Delivery Room Air Room Air Room Air Room Air 04/23/18 04/23/18 04/23/18 04/23/18 15:50 19:01 20:00 22:20 Temp 97.6 97.6 Pulse 56 Resp 16 B/P (MAP) 129/63 (85) Pulse Ox 94 O2 Delivery Room Air Room Air Room Air Room Air 04/23/18 04/23/18 04/24/18 04/24/18 22:50 23:38 03:33 07:00 Temp 97.6 97.6 98.0 97.6 97.6 98.0 Pulse 58 54 57 Resp 16 16 18 B/P (MAP) 127/65 (85) 120/63 (82) 152/70 (97) Pulse Ox 95 95 94 O2 Delivery Room Air Room Air Room Air Room Air 04/24/18 04/24/18 04/24/18 04/24/18 08:00 10:20 10:22 10:24 Pulse 72 72 Resp 16 16 B/P (MAP) 133/73 Pulse Ox 97 97 O2 Delivery Room Air Nasal Cannula Nasal Cannula O2 Flow Rate 2.0 2.0 04/24/18 04/24/18 10:56 10:57 Pulse 72 72 B/P (MAP) 133/73 133/73 Intake and Output 04/23/18 04/23/18 04/24/18 14:59 22:59 06:59 Intake Total 400 ml 300 ml Output Total 450 ml Balance 400 ml -150 ml JUSTINA WU III, DO Apr 24, 2018 11:45
--- NOTE | 2018-04-24 12:58 | NUR ---
SS following for discharge planning. SS reviewed pt chart. Pt is from home with spouse. No discharge needs noted at this time. SS will continue to follow for pending discharge needs.
--- NOTE | 2018-04-24 14:00 | NUR ---
SS following up with discharge planning. Request for transfer to [facility] received. SS contacted [facility] Transfer team, , and made request for transfer. Contact information for Dr. Vang provided to [facility] Transfer team. SS phoned and faxed face sheet and copy of insurance cards as requested to [facility] to fax [phone]. Packet placed on chart. SS will await acceptance decision and will proceed accordingly. Addendum: 04/24/18 at 1403 by MAXIMILIAN CABELLO Face sheet and insurance cards faxed to [facility] transfer team at fax [phone].
--- NOTE | 2018-04-24 15:08 | NUR ---
SS following for discharge planning. Pt accepted for transfer to [facility]. Bed #H617. [facility] ambulance contacted and pt is first on the list for ambulance transport. Pt's RN provided report to [facility]. Packet, transfer form, and ambulance form placed on chart. Pt's RN and physician notified.
--- NOTE | 2018-04-24 15:45 | NUR ---
Patient transferred to [facility] via EMS, BRITATNY Cruz called report to nurse at [facility].
== END 2018-04-24 15:30 | disposition short-term general hospital (02) | DRG 287 ==
LOC: ER 10:14 → 2 SOUTH 11:40
PROVIDERS: ADMIT Internal Medicine; ATTEND Internal Medicine
PROC: 4A023N7 Measurement of Cardiac Sampling and Pressure, Left Heart, Percutaneous Approach (ICD-10-PCS; principal; 2018-04-24)
PROC: B2111ZZ Fluoroscopy of Multiple Coronary Arteries using Low Osmolar Contrast (ICD-10-PCS; 2018-04-24)
PROC: B2151ZZ Fluoroscopy of Left Heart using Low Osmolar Contrast (ICD-10-PCS; 2018-04-24)
DX: T82.855A Stenosis of coronary artery stent, initial encounter (principal); I25.110 Atherosclerotic heart disease of native coronary artery with unstable angina pectoris; Z68.32 Body mass index [BMI] 32.0-32.9, adult; E78.00 Pure hypercholesterolemia, unspecified; E78.5 Hyperlipidemia, unspecified; F17.210 Nicotine dependence, cigarettes, uncomplicated; E66.9 Obesity, unspecified; R00.1 Bradycardia, unspecified; M19.90 Unspecified osteoarthritis, unspecified site; I10 Essential (primary) hypertension; Y83.8 Other surgical procedures as the cause of abnormal reaction of the patient, or of later complication, without mention of misadventure at the time of the procedure; Y92.89 Other specified places as the place of occurrence of the external cause; I25.2 Old myocardial infarction; Z95.5 Presence of coronary angioplasty implant and graft; Z79.899 Other long term (current) drug therapy; Z71.6 Tobacco abuse counseling; Z82.49 Family history of ischemic heart disease and other diseases of the circulatory system; Z79.82 Long term (current) use of aspirin
CPT/HCPCS: 36415; 71045; 80048; 80076; 83690; 83880; 84484; 85025; 85610; 85730; 93005; 93458; 99152; 99153; C1769; C1892; J1644; J2250; J2270; J3010; J3490; Q9967; 99285-25